=== PATIENT | female | born 2000 | race Caucasian/White ===

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

== ENCOUNTER 2021-02-05 19:31 | Emergency (ER) | payer OTHER ==
[2021-02-05 19:54] VITALS: RESP 18
--- NOTE | 2021-02-05 21:33 | XR ---
EXAMINATION TYPE: XR chest 2V DATE OF EXAM: 02/05/2021 COMPARISON: NONE HISTORY: Cough and congestion TECHNIQUE: Frontal and lateral views of the chest are obtained. FINDINGS: There is no focal air space opacity, pleural effusion, or pneumothorax seen. The cardiac silhouette size is within normal limits. The osseous structures are intact. IMPRESSION: No acute cardiopulmonary process.
--- NOTE | 2021-02-05 22:02 | ED ---
General Adult HPI - General Chief complaint: Upper Respiratory Infection Stated complaint: Congestion,Sore Throat Time Seen by Provider: 02/05/21 19:53 Source: patient, RN notes reviewed Mode of arrival: ambulatory - History of Present Illness Initial comments: Patient is a 20-year-old female that presents to emergency room with her daughter stating that she's been sneezing coughing more. She notes that she does have a little bit of a sore throat. She notes that she also had seasonal ALLERGIES. She denies any fevers fatigue. She was a well-appearing 20-year-old female apparent distress or pain. She denied any other issues at this time. - Related Data Home Medications Medication Instructions Recorded Confirmed Sertraline HCl [Zoloft] 50 mg PO HS 05/23/20 12/22/20 Previous Rx's Medication Instructions Recorded Ibuprofen [Motrin] 600 mg PO Q6H #30 tab 12/25/20 oxyCODONE HCL [OxyIR] 5 mg PO Q4HR PRN #18 tab 12/25/20 Allergies Allergy/AdvReac Type Severity Reaction Status Date / Time cinnamon Allergy Swelling Verified 02/05/21 19:54 milk Allergy CONSTIPATIO Verified 02/05/21 19:54 N Review of Systems ROS Statement: Those systems with pertinent positive or pertinent negative responses have been documented in the HPI. ROS Other: All systems not noted in ROS Statement are negative. 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 bipolor, depression. illicit drug use General Exam General appearance: alert, in no apparent distress Head exam: Present: atraumatic, normocephalic, normal inspection Eye exam: Present: normal appearance, PERRL, EOMI. Absent: scleral icterus, conjunctival injection, periorbital swelling ENT exam: Present: normal exam, mucous membranes moist Neck exam: Present: normal inspection Respiratory exam: Present: normal lung sounds bilaterally. Absent: respiratory distress, wheezes, rales, rhonchi, stridor Cardiovascular Exam: Present: regular rate, normal rhythm, normal heart sounds. Absent: systolic murmur, diastolic murmur, rubs, gallop, clicks GI/Abdominal exam: Present: soft, normal bowel sounds. Absent: distended, tenderness, guarding, rebound, rigid Extremities exam: Present: normal inspection, full ROM, normal capillary refill. Absent: tenderness, pedal edema, joint swelling, calf tenderness Neurological exam: Present: alert, oriented X3 Psychiatric exam: Present: normal affect, normal mood Skin exam: Present: warm, dry, intact, normal color. Absent: rash Course Vital Signs 02/05/21 19:51 Temperature 99.2 F Pulse Rate 87 Respiratory 18 Rate Blood Pressure 125/67 O2 Sat by Pulse 98 Oximetry Medical Decision Making - Medical Decision Making 20-year-old female with a cough and sneezing, also has seasonal ALLERGIES. Chest x-ray, Covid test. Covid test negative. Chest x-ray shows no acute cardiopulmonary process. Case discussed with Dr. Harris, patient discharge home. - Lab Data Lab Results 02/05/21 Range/Units 20:35 Coronavirus (PCR) Not Detected (Not Detectd) Disposition Clinical Impression: Seasonal allergies Disposition: HOME SELF-CARE Instructions (If sedation given, give patient instructions): Upper Respiratory Infection (ED) Additional Instructions: Chest x-ray: No acute cardiopulmonary process. Is patient prescribed a controlled substance at d/c from ED?: No Referrals: Stanislav Sanders MD [Primary Care Provider] - 1-2 days Time of Disposition: 22:01
[2021-02-05 22:57] VITALS: BP 123/71; PULSE 89; TEMP 98.9
== END 2021-02-05 22:57 | disposition home or self-care (01) ==
LOC: EC 19:31
DX: J30.2 Other seasonal allergic rhinitis (principal); F41.9 Anxiety disorder, unspecified; F31.9 Bipolar disorder, unspecified; F43.12 Post-traumatic stress disorder, chronic; F12.90 Cannabis use, unspecified, uncomplicated; Z91.018 Allergy to other foods; Z91.011 Allergy to milk products; Z87.891 Personal history of nicotine dependence; Z20.822 Contact with and (suspected) exposure to COVID-19
CPT/HCPCS: 71046; 87635; 99283

== ENCOUNTER 2021-02-09 18:40 | Inpatient (IN) | payer MEDICAID, OTHER ==
--- NOTE | 2021-02-09 20:00 | ED ---
General Adult HPI - General Chief complaint: Psychiatric Symptoms Stated complaint: Psych Eval Time Seen by Provider: 02/09/21 19:41 Source: patient Mode of arrival: ambulatory Limitations: no limitations - History of Present Illness Initial comments: Dictation was produced using [employer] dictation software. please excuse any grammatical, word or spelling errors. Chief Complaint: 20-year-old female presents to the emergency department for suicidal ideation History of Present Illness: Patient is a 20-year-old female presents for farida cidal ideation. She has been admitted to inpatient psychiatry for suicidal ideation in the past as a pediatric patient. States that she wants to overdose on pills. She is 1 month . Patient has no medical issues. Denies any pain complaints. No visual auditory hallucinations. The ROS documented in this emergency department record has been reviewed and confirmed by me. Those systems with pertinent positive or negative responses have been documented in the HPI. All other systems are other negative and/or noncontributory. PHYSICAL EXAM: General Impression: Alert and oriented x3, not in acute distress HEENT: Normocephalic atraumatic, extra-ocular movements intact, pupils equal and reactive to light bilaterally, mucous membranes moist. Cardiovascular: Heart regular rate and rhythm Chest: Able to complete full sentences, no retractions, no tachypnea Abdomen: abdomen soft, non-tender, non-distended, no organomegaly Musculoskeletal: Pulses present and equal in all extremities, no peripheral edema Motor: no focal deficits noted Neurological: CN II-XII grossly intact, no focal motor or sensory deficits noted Skin: Intact with no visualized rashes Psych: Normal affect and mood ED course: 20-year-old female presents with suicidal ideation. Patient has plans to overdose on pills. Vital signs upon arrival are within acceptable limits. Physical examination is benign. Medically cleared for EPS evaluation. Chart was reviewed later date. Patient was admitted to inpatient psychiatry. - Related Data Home Medications Medication Instructions Recorded Confirmed Amoxicillin 500 mg PO BID 02/09/21 02/09/21 Fluticasone Nasal [place] [Flonase 1 spray EA NOSTRIL DAILY 02/09/21 02/09/21 Nasal [place]] Medroxyprogesterone Acetate 150 mg IM Q90D 02/09/21 02/09/21 [Depo-Provera] Previous Rx's Medication Instructions Recorded Nicotine 7Mg/24Hr Patch [Habitrol] 1 patch TRANSDERM DAILY 30 Days 02/13/21 patch Sertraline [Zoloft] 75 mg PO DAILY 30 Days tab 02/13/21 Allergies Allergy/AdvReac Type Severity Reaction Status Date / Time cinnamon Allergy Swelling Verified 02/09/21 20:49 milk Allergy CONSTIPATIO Verified 02/09/21 20:49 N Review of Systems ROS Statement: Those systems with pertinent positive or pertinent negative responses have been documented in the HPI. ROS Other: All systems not noted in ROS Statement are negative. 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 bipolor, depression. illicit drug use General Exam Limitations: no limitations Course Vital Signs 02/09/21 02/09/21 02/10/21 19:37 23:00 02:18 Temperature 97.9 F Pulse Rate 66 85 61 Respiratory 18 20 20 Rate Blood Pressure 114/62 109/65 108/64 O2 Sat by Pulse 99 95 98 Oximetry Medical Decision Making - Lab Data Result diagrams: 02/10/21 12:08 02/10/21 12:08 Lab Results 02/10/21 Range/Units 01:14 Coronavirus (PCR) Not Detected (Not Detectd) Disposition Clinical Impression: Suicidal ideation Disposition: ADMITTED IP TO THIS HOSP Condition: Stable
[2021-02-10] MEDS ORDERED: LORazepam 1 MG TAB PO PRN (03:06)
[2021-02-10] MEDS ORDERED: MAGNESIUM HYDROXIDE 2,400 MG/10 ML CUP PO PRN (03:06)
[2021-02-10] MEDS ORDERED: MAG HYDROX/AL HYDROX/SIMETH 30 ML CUP PO PRN (03:06)
[2021-02-10] MEDS ORDERED: ACETAMINOPHEN TAB 325 MG TAB PO PRN (03:06)
[2021-02-10] MEDS ORDERED: LORazepam 2 MG/ML INJ IM PRN (03:09)
--- NOTE | 2021-02-10 03:35 | P.CONS ---
History of Present Illness - Reason for Consult Consult date: 02/10/21 - History of Present Illness Patient is a 20-year-old female with a PMH of fibromyalgia, recent 7 weeks ago, who presented to the emergency room with complaints of depression and suicidal ideation. The patient reports that her recent childbirth has been very stressful and that the child's father is not very helpful, which has been very difficult for her. She notes wanting to overdose on the medications she had received for the postop care. She also reported nasal congestion and productive cough ongoing for the past 4-5 days, for which she was seen by her primary care physician's office and was prescribed amoxicillin and fluticasone nasal spray. The patient reports compliance with the above medications and states that her symptoms have improved over the past few days. Denied any additional fevers. Also denied shortness of breath, nausea, vomiting, diarrhea, abdominal pain. Review of systems: Pertinent positives and negatives as discussed in HPI, a complete review of systems was performed and all other systems are negative. Physical examination: General: non toxic, no distress, appears at stated age, normal weight Derm: no unusual rashes/lesions no unusual ecchymoses, warm, dry Head: atraumatic, normocephalic, symmetric Eyes: EOMI, no lid lag, anicteric sclera, pupils equal round reactive to light ENT: Nose and ears atraumatic, no thrush, no pharyngeal erythema Neck: No thyromegaly, no cervical lymphadenopathy, trachea midline, supple Mouth: no lip lesion, mucus membranes moist Cardiovascular: S1S2 reg, no murmur, positive posterior tibial pulse bilateral, no edema, capillary refill less than 2 seconds Lungs: CTA bilateral, no rhonchi, no rales , no accessory muscle use Abdominal: soft, nontender to palpation, no guarding, no appreciable organomegaly, normal bowel sounds Ext: no gross muscle atrophy, muscle strength 5 out of 5 in all 4 extremities grossly, no contractures, Neuro: CN II-XI grossly intact, light touch intact all 4 extremities, finger to nose within normal limits, Psych: Alert, oriented, appropriate affect Assessment/plan URI -Continue with amoxicillin to complete course -Continue with fluticasone nasal spray for symptomatic control Depression with suicidal ideation -As per psychiatry Past Medical History Past Medical History: Fibromyalgia Additional Past Medical History / Comment(s): 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 bipolor, depression. illicit drug use Medications and Allergies Home Medications Medication Instructions Recorded Confirmed Type Amoxicillin 500 mg PO BID 02/09/21 02/09/21 History Fluticasone Nasal Brooks [Flonase 1 spray EA NOSTRIL DAILY 02/09/21 02/09/21 History Nasal Brooks] Ibuprofen [Motrin] 600 mg PO Q6H PRN 02/09/21 02/09/21 History Medroxyprogesterone Acetate 150 mg IM Q90D 02/09/21 02/09/21 History [Depo-Provera] Allergies Allergy/AdvReac Type Severity Reaction Status Date / Time cinnamon Allergy Swelling Verified 02/09/21 20:49 milk Allergy CONSTIPATIO Verified 02/09/21 20:49 N Physical Exam Vitals: Vital Signs Temp Pulse Resp BP Pulse Ox 02/10/21 02:18 61 20 108/64 98 02/09/21 23:00 85 20 109/65 95 02/09/21 19:37 97.9 F 66 18 114/62 99 Intake and Output 02/09/21 02/09/21 02/10/21 14:59 22:59 06:59 Other: Weight 52.617 kg
[2021-02-10 03:50] VITALS: RESP 16
[2021-02-10] MEDS: AMOXICILLIN 500 MG CAP PO SCH ×2 (08:40→21:40)
[2021-02-10] MEDS: NICOTINE 7MG/24HR PATCH TRANSDERM SCH (08:40)
[2021-02-10] MEDS: FLUTICASONE 50MCG/SPRAY NASAL 16GM EA NOSTRIL SCH (08:40)
[2021-02-10] MEDS ORDERED: SERTRALINE 50 MG TAB PO STA (12:27)
[2021-02-10 12:35] LABS: Basophils % (A) 1 %; Eosinophils # (A) 0.2 k/uL (0-0.7); Eosinophils % (A) 3 %; HCT 38.2 % (34.0-46.0); HGB 12.2 gm/dL (11.4-16.0); Lymphocytes # (A) 2.1 k/uL (1.0-4.8); Lymphocytes % (A) 39 %; MCH 28.1 pg (25.0-35.0); MCHC 32.1 g/dL (31.0-37.0); MCV 87.6 fL (80.0-100.0); Mean Platelet Volume 7.8; Monocytes # (A) 0.2 k/uL (0-1.0); Monocytes % (A) 4 %; Neutrophils # (A) 2.7 k/uL (1.3-7.7); Neutrophils % (A) 51 %; Platelet Count 313 k/uL (150-450); RBC 4.36 m/uL (3.80-5.40); RDW 14.5 % (11.5-15.5); WBC 5.4 k/uL (4.0-11.0)
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
[2021-02-10 12:57] LABS: ALT 25 U/L (4-34); AST 25 U/L (14-36); African American GFR (CKD) >90 (>60 ml/min/1.73 sqM); Albumin 3.9 g/dL (3.5-5.0); Alkaline Phosphatase 92 U/L (38-126); Anion Gap 8 mmol/L; Blood Urea Nitrogen 10 mg/dL (7-17); Calcium 9.4 mg/dL (8.4-10.2); Carbon Dioxide 22 mmol/L (22-30); Chloride 111 mmol/L (98-107); Glucose 90 mg/dL (74-99); Non-African American GFR(CKD) >90 (>60 ml/min/1.73 sqM); Potassium 4.6 mmol/L (3.5-5.1); Sodium 141 mmol/L (137-145); Total Bilirubin 0.2 mg/dL (0.2-1.3); Total Protein 6.6 g/dL (6.3-8.2)
[2021-02-10 19:26] LABS: Appearance,Urine Clear (Clear); Bilirubin,Urine Negative (Negative); Blood,Urine Negative (Negative); Color,Urine Light Yellow; Glucose,Urine (UA) Negative (Negative); Ketones,Urine Negative (Negative); Leukocyte Esterase,Urine Moderate (Negative); Mucus,Urine Rare /hpf; Nitrite,Urine Negative (Negative); Protein,Urine Negative (Negative); RBC,Urine 1 /hpf (0-5); Specific Gravity,Urine 1.014 (1.001-1.035); Squamous Epithelial Cell,Urine 6 /hpf (0-4); Urobilinogen,Urine <2.0 mg/dL (<2.0); WBC,Urine 2 /hpf (0-5)
[2021-02-11] MEDS: FLUTICASONE 50MCG/SPRAY NASAL 16GM EA NOSTRIL SCH (08:10)
[2021-02-11] MEDS: AMOXICILLIN 500 MG CAP PO SCH ×2 (08:10→20:53)
[2021-02-11] MEDS: NICOTINE 7MG/24HR PATCH TRANSDERM SCH (08:10)
[2021-02-11] MEDS: SERTRALINE 25 MG TAB PO SCH (08:10)
--- NOTE | 2021-02-11 14:27 | PN ---
PROGRESS NOTE DATE OF SERVICE: 02/11/2021 CHIEF COMPLAINT: The patient had depression with suicidal thinking. She had intrusive thoughts of harming her child, who was 7 weeks old. INTERVAL HISTORY: Patient has been doing fairly well. She had a quiet day yesterday. She comes on the unit. She tends to keep to herself. She chose not to attend groups yesterday. She was able to talk about depression issues relating to her . She noted that she did not have depression during , though that depression seemed to start up some weeks after giving , as there were some struggles for her baby. She said the baby had troubles with breast-feeding intermittently, which was a problem. Baby also would get quite distressed when she was not able to feed appropriately. The patient said that the stress of caring for her baby just seemed to get overwhelming to her. She notes that she has had depression in the past and says that the medications had been helpful before. She slept fair last night. She said she has been trying to get extra sleep here on the unit because she had not been getting much sleep at home. Today she has been up. She did attend groups today so far. She notes that her mood is better, she has a better outlook. She still has some worries about her baby as appropriate, though feels she is managing that fairly well. She has made telephone contacts to various family members, checking up on things and making sure her baby is okay. Her sister has been caring for her child along with the father, with whom she lives. She tolerates her psychotropic medications, including the increase in Zoloft. MENTAL STATUS EXAM: Patient sat with a little restlessness. She gave fairly good eye contact. She answered questions with brief responses. Her thoughts were clear. She tended to speak in a soft, at times airy, voice. Her affect was a little constricted. Her mood was reserved though not clearly down or depressed. She did not appear to be significantly distressed, though she did have a somewhat worried manner. Her thoughts were clear with no indication of thought disorder. She voiced no thoughts of harm. Cognition was clear. ASSESSMENT: I will continue the current diagnosis and treatment plan. I will continue her on Zoloft 75 mg a day. I reviewed medication issues with the patient, including indications and potential side effects. I discussed the general protocol for a trial of an antidepressant. We discussed Covid vaccination issues, given that the CDC now has a recommendation for women and women breast-feeding to receive the vaccination. There is also indications that through breast milk the infant can also receive protection relating to Covid. We will focus on stabilization and discharge planning. The patient is doing fairly well. She does start class on Saturday and was hopeful to possibly have her laptop in on the unit to do class work. I discussed that that likely would not be permitted. On the other hand, the patient is showing progress and may be able to be discharged early in the week. MMODL / IJN: [id number] / JEMAL
[2021-02-11 17:03] LABS: Urine Alcohol Negative (Negative); Urine Barbiturate Negative (Negative); Urine Cocaine Negative (Negative); Urine Methadone Negative (Negative); Urine Opiates Negative (Negative); Urine Phencyclidine Negative (Negative)
[2021-02-12] MEDS: SERTRALINE 25 MG TAB PO SCH (07:51)
[2021-02-12] MEDS: FLUTICASONE 50MCG/SPRAY NASAL 16GM EA NOSTRIL SCH (07:51)
[2021-02-12] MEDS: AMOXICILLIN 500 MG CAP PO SCH ×2 (07:51→20:47)
[2021-02-12] MEDS: NICOTINE 7MG/24HR PATCH TRANSDERM SCH (07:52)
--- NOTE | 2021-02-12 13:39 | PN ---
PROGRESS NOTE DATE OF SERVICE: 02/12/2021 CHIEF COMPLAINT: The patient had depression with suicidal thinking. She had intrusive thoughts of harming her child who was 7 weeks old. INTERVAL HISTORY: Patient has been doing fairly well. She had a quiet day yesterday. She comes out on the unit. She will interact with others. She attended groups yesterday and seemed to engage appropriately in groups. She was appropriate in her interactions with staff and peers. She said she slept fairly well last night. Today she has been up. She notes a better outlook. She acknowledged that yesterday she did have some issues with feeling anxious about how her was doing, though she said today she feels more calm about it. She keeps in touch with family. She asked appropriate questions about Zoloft and breast-feeding. She tolerates psychotropic medications. MENTAL STATUS: Patient sat without restlessness. She had good eye contact. She answered questions appropriately. Her thoughts were clear and coherent. She was interactive. Her affect was in a reasonable range. Her mood was reserved, though not down or depressed. She did not appear to be distressed. There was no indication of thought disorder. She denied thoughts of harm to herself, her or anyone else. Cognition was clear. ASSESSMENT: I will continue the current diagnosis and treatment plan. The patient will continue Zoloft 75 mg a day. I reviewed current guidelines relating to Zoloft and breast- feeding. The indication appears to be that a minimal amount of sertraline goes through breast milk to the and that there are no issues with exposure to the infant. I again strongly encouraged the patient to review CDC guidelines in regard to vaccination and breast-feeding. I would anticipate the patient being discharged early in the week. She is hopeful to be discharged so she can begin school on Saturday. We will focus on stabilization and discharge planning. MMODL / IJN: [id number] /
[2021-02-13 06:59] VITALS: BP 106/55; PULSE 80; TEMP 97.7
[2021-02-13] MEDS: NICOTINE 7MG/24HR PATCH TRANSDERM SCH (08:17)
[2021-02-13] MEDS: SERTRALINE 25 MG TAB PO SCH (08:18)
[2021-02-13] MEDS: FLUTICASONE 50MCG/SPRAY NASAL 16GM EA NOSTRIL SCH (08:18)
[2021-02-13] MEDS: AMOXICILLIN 500 MG CAP PO SCH (08:18)
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
== END 2021-02-13 12:58 | disposition home or self-care (01) | DRG 881 ==
LOC: EC 18:40 → 3MHU 02-10 02:01
PROVIDERS: ADMIT Psychiatry & Neurology Psychiatry; ATTEND Psychiatry & Neurology Psychiatry
DX: F53.0 Postpartum depression (principal); R45.851 Suicidal ideations; F17.200 Nicotine dependence, unspecified, uncomplicated; F31.9 Bipolar disorder, unspecified; F43.10 Post-traumatic stress disorder, unspecified; J06.9 Acute upper respiratory infection, unspecified; M79.7 Fibromyalgia; O99.345 Other mental disorders complicating the puerperium; Z79.899 Other long term (current) drug therapy; Z81.8 Family history of other mental and behavioral disorders; Z91.5 Personal history of self-harm; F12.10 Cannabis abuse, uncomplicated
CPT/HCPCS: 80053; 80306; 81001; 81025; 82075; 83036; 84443; 85025; 87635; 99285

== ENCOUNTER → 2021-04-07 | Outpatient (CLI) | payer OTHER | END | disposition home or self-care (01) | LOC: LABWHC1 15:37 | PROVIDERS: ATTEND Obstetrics & Gynecology | DX: N91.2 Amenorrhea, unspecified (principal) | CPT/HCPCS: 36415; 84702 ==

== ENCOUNTER → 2021-08-03 | Outpatient (CLI) | payer OTHER | END | disposition home or self-care (01) | LOC: LABWHC1 15:45 | PROVIDERS: ATTEND Obstetrics & Gynecology | DX: N94.89 Other specified conditions associated with female genital organs and menstrual cycle (principal); R10.2 Pelvic and perineal pain | CPT/HCPCS: 36415; 84702 ==

== ENCOUNTER 2021-09-29 20:34 | Emergency (ER) | payer OTHER ==
[2021-09-29 20:41] VITALS: RESP 18
--- NOTE | 2021-09-29 21:00 | ED ---
General Adult HPI - General Chief complaint: Syncope Stated complaint: Syncope, head injury Time Seen by Provider: 09/29/21 20:45 Source: patient Mode of arrival: ambulatory Limitations: no limitations - History of Present Illness Initial comments: Patient is a 20-year-old female presenting with chief complaint of syncope. Patient states that prior to presentation she was at a restaurant, she took a sip of her drink and it "went down the wrong pipe" causing her to profusely cough. When she stopped coughing she felt the sharp chest pain and the next thing she remembers is waking up on the floor. Her partner with her at times states she was unconscious for 45 seconds-1 minute. When asked if she hit her head, her partner with her at bedside states that she hit her head on the table but did not fall to the ground. Patient states that she has lost consciousness in the past before, this occurred during her . Patient admits to mild abdominal cramping this week. She currently denies any chest pain, shortness of breath, fever, chills, vision or hearing changes, neck stiffness, abdominal pain, nausea, vomiting, cough, hemoptysis, dizziness. - Related Data Home Medications Medication Instructions Recorded Confirmed Sertraline [Zoloft] 75 mg PO DAILY 09/29/21 09/29/21 Allergies Allergy/AdvReac Type Severity Reaction Status Date / Time cinnamon Allergy Swelling Verified 09/29/21 21:31 milk Allergy CONSTIPATIO Verified 09/29/21 21:31 N Review of Systems ROS Statement: Those systems with pertinent positive or pertinent negative responses have been documented in the HPI. ROS Other: All systems not noted in ROS Statement are negative. 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 bipolor, depression. illicit drug use General Exam Limitations: no limitations General appearance: alert, in no apparent distress Head exam: Present: atraumatic, normocephalic, normal inspection Eye exam: Present: normal appearance, PERRL, EOMI. Absent: scleral icterus, conjunctival injection, periorbital swelling ENT exam: Present: normal exam, mucous membranes moist Neck exam: Present: normal inspection, full ROM. Absent: tenderness, meningismus, lymphadenopathy Respiratory exam: Present: normal lung sounds bilaterally. Absent: respiratory distress, wheezes, rales, rhonchi, stridor Cardiovascular Exam: Present: regular rate, normal rhythm, normal heart sounds. Absent: systolic murmur, diastolic murmur, rubs, gallop, clicks Neurological exam: Present: alert, oriented X3, CN II-XII intact Expanded Patient oriented to: Present: person, place, time Speech: Present: fluid speech Cranial nerves: EOM's Intact: Normal, Facial Sensation: Normal Ataxia: Absent: yes Eye Response: (4) open spontaneously Motor Response: (6) obeys commands Verbal Response: (5) oriented [place] Total: 15 Psychiatric exam: Present: normal affect, normal mood Skin exam: Present: warm, dry, intact, normal color. Absent: rash Course Vital Signs 09/29/21 09/29/21 20:37 23:26 Temperature 98.1 F 98.2 F Pulse Rate 62 73 Respiratory 18 18 Rate Blood Pressure 140/79 98/59 O2 Sat by Pulse 100 97 Oximetry Medical Decision Making - Medical Decision Making Patient is a 20-year-old female presenting with chief complaint of syncope. Patient states that she lost consciousness after a coughing fit. Her partner at bedside denies any head injury. Exam is benign, no focal neurological deficits. EKG is remarkable for prolonged FL interval, no previous study to c ompare to. Lab work is unremarkable. Chest x-ray shows no acute cardiopulmonary process. I educated the patient on the findings and advised outpatient cardiology follow-up. Follow-up with PCP and cardiology this week. Report back to ER with any worsening symptoms. I educated the patient on return parameters answered all questions. Patient conveyed verbal understanding and agrees with plan. I discussed this case with my attending Dr. Genao. - Lab Data Result diagrams: 09/29/21 21:14 09/29/21 21:14 Lab Results 09/29/21 09/29/2122 Range/Units 21:14 21:14 21:14 WBC 9.0 (4.0-11.0) k/uL RBC 4.47 (3.80-5.40) m/uL Hgb 13.1 (11.4-16.0) gm/dL Hct 40.5 (34.0-46.0) % MCV 90.5 (80.0-100.0) fL MCH 29.3 (25.0-35.0) pg MCHC 32.4 (31.0-37.0) g/dL RDW 12.9 (11.5-15.5) % Plt Count 240 (150-450) k/uL MPV 8.4 Neutrophils % 65 % Lymphocytes % 27 % Monocytes % 5 % Eosinophils % 1 % Basophils % 1 % Neutrophils # 5.9 (1.3-7.7) k/uL Lymphocytes # 2.4 (1.0-4.8) k/uL Monocytes # 0.4 (0-1.0) k/uL Eosinophils # 0.1 (0-0.7) k/uL Basophils # 0.1 (0-0.2) k/uL PT 11.5 (9.0-12.0) sec INR 1.1 (<1.2) APTT 24.7 (22.0-30.0) sec Sodium 138 (137-145) mmol/L Potassium 4.1 (3.5-5.1) mmol/L Chloride 106 (98-107) mmol/L Carbon Dioxide 23 (22-30) mmol/L Anion Gap 9 mmol/L BUN 13 (7-17) mg/dL Creatinine 0.65 (0.52-1.04) mg/dL Est GFR (CKD-EPI)AfAm >90 (>60 ml/min/1.73 sqM) Est GFR (CKD-EPI)NonAf >90 (>60 ml/min/1.73 sqM) Glucose 93 (74-99) mg/dL Calcium 9.1 (8.4-10.2) mg/dL Magnesium 2.0 (1.6-2.3) mg/dL Total Bilirubin 0.5 (0.2-1.3) mg/dL AST 20 (14-36) U/L ALT 13 (4-34) U/L Alkaline Phosphatase 80 (38-126) U/L Troponin I (0.000-0.034) ng/mL Total Protein 7.1 (6.3-8.2) g/dL Albumin 4.3 (3.5-5.0) g/dL Urine Color Urine Appearance (Clear) Urine pH (5.0-8.0) Ur Specific [place] (1.001-1.035) Urine Protein (Negative) Urine Glucose (UA) (Negative) Urine Ketones (Negative) Urine Blood (Negative) Urine Nitrite (Negative) Urine Bilirubin (Negative) Urine Urobilinogen (<2.0) mg/dL Ur Leukocyte Esterase (Negative) Urine HCG, Qual (Not Detectd) Urine Opiates Screen (NotDetected) Ur Oxycodone Screen (NotDetected) Urine Methadone Screen (NotDetected) Ur Propoxyphene Screen (NotDetected) Ur Barbiturates Screen (NotDetected) U Tricyclic Antidepress (NotDetected) Ur Phencyclidine Scrn (NotDetected) Ur Amphetamines Screen (NotDetected) U Methamphetamines Scrn (NotDetected) U Benzodiazepines Scrn (NotDetected) Urine Cocaine Screen (NotDetected) U Marijuana (THC) Screen (NotDetected) 09/29/21 09/29/21 09/29/21 Range/Units 21:14 21:14 21:14 WBC (4.0-11.0) k/uL RBC (3.80-5.40) m/uL Hgb (11.4-16.0) gm/dL Hct (34.0-46.0) % MCV (80.0-100.0) fL MCH (25.0-35.0) pg MCHC (31.0-37.0) g/dL RDW (11.5-15.5) % Plt Count (150-450) k/uL MPV Neutrophils % % Lymphocytes % % Monocytes % % Eosinophils % % Basophils % % Neutrophils # (1.3-7.7) k/uL Lymphocytes # (1.0-4.8) k/uL Monocytes # (0-1.0) k/uL Eosinophils # (0-0.7) k/uL Basophils # (0-0.2) k/uL PT (9.0-12.0) sec INR (<1.2) APTT (22.0-30.0) sec Sodium (137-145) mmol/L Potassium (3.5-5.1) mmol/L Chloride (98-107) mmol/L Carbon Dioxide (22-30) mmol/L Anion Gap mmol/L BUN (7-17) mg/dL Creatinine (0.52-1.04) mg/dL Est GFR (CKD-EPI)AfAm (>60 ml/min/1.73 sqM) Est GFR (CKD-EPI)NonAf (>60 ml/min/1.73 sqM) Glucose (74-99) mg/dL Calcium (8.4-10.2) mg/dL Magnesium (1.6-2.3) mg/dL Total Bilirubin (0.2-1.3) mg/dL AST (14-36) U/L ALT (4-34) U/L Alkaline Phosphatase (38-126) U/L Troponin I <0.012 (0.000-0.034) ng/mL Total Protein (6.3-8.2) g/dL Albumin (3.5-5.0) g/dL Urine Color Yellow Urine Appearance Clear (Clear) Urine pH 5.5 (5.0-8.0) Ur Specific [place] 1.022 (1.001-1.035) Urine Protein Negative (Negative) Urine Glucose (UA) Negative (Negative) Urine Ketones Negative (Negative) Urine Blood Negative (Negative) Urine Nitrite Negative (Negative) Urine Bilirubin Negative (Negative) Urine Urobilinogen <2.0 (<2.0) mg/dL Ur Leukocyte Esterase Negative (Negative) Urine HCG, Qual Not Detected (Not Detectd) Urine Opiates Screen (NotDetected) Ur Oxycodone Screen (NotDetected) Urine Methadone Screen (NotDetected) Ur Propoxyphene Screen (NotDetected) Ur Barbiturates Screen (NotDetected) U Tricyclic Antidepress (NotDetected) Ur Phencyclidine Scrn (NotDetected) Ur Amphetamines Screen (NotDetected) U Methamphetamines Scrn (NotDetected) U Benzodiazepines Scrn (NotDetected) Urine Cocaine Screen (NotDetected) U Marijuana (THC) Screen (NotDetected) 09/29/21 Range/Units 21:35 WBC (4.0-11.0) k/uL RBC (3.80-5.40) m/uL Hgb (11.4-16.0) gm/dL Hct (34.0-46.0) % MCV (80.0-100.0) fL MCH (25.0-35.0) pg MCHC (31.0-37.0) g/dL RDW (11.5-15.5) % Plt Count (150-450) k/uL MPV Neutrophils % % Lymphocytes % % Monocytes % % Eosinophils % % Basophils % % Neutrophils # (1.3-7.7) k/uL Lymphocytes # (1.0-4.8) k/uL Monocytes # (0-1.0) k/uL Eosinophils # (0-0.7) k/uL Basophils # (0-0.2) k/uL PT (9.0-12.0) sec INR (<1.2) APTT (22.0-30.0) sec Sodium (137-145) mmol/L Potassium (3.5-5.1) mmol/L Chloride (98-107) mmol/L Carbon Dioxide (22-30) mmol/L Anion Gap mmol/L BUN (7-17) mg/dL Creatinine (0.52-1.04) mg/dL Est GFR (CKD-EPI)AfAm (>60 ml/min/1.73 sqM) Est GFR (CKD-EPI)NonAf (>60 ml/min/1.73 sqM) Glucose (74-99) mg/dL Calcium (8.4-10.2) mg/dL Magnesium (1.6-2.3) mg/dL Total Bilirubin (0.2-1.3) mg/dL AST (14-36) U/L ALT (4-34) U/L Alkaline Phosphatase (38-126) U/L Troponin I (0.000-0.034) ng/mL Total Protein (6.3-8.2) g/dL Albumin (3.5-5.0) g/dL Urine Color Urine Appearance (Clear) Urine pH (5.0-8.0) Ur Specific [place] (1.001-1.035) Urine Protein (Negative) Urine Glucose (UA) (Negative) Urine Ketones (Negative) Urine Blood (Negative) Urine Nitrite (Negative) Urine Bilirubin (Negative) Urine Urobilinogen (<2.0) mg/dL Ur Leukocyte Esterase (Negative) Urine HCG, Qual (Not Detectd) Urine Opiates Screen Not Detected (NotDetected) Ur Oxycodone Screen Not Detected (NotDetected) Urine Methadone Screen Not Detected (NotDetected) Ur Propoxyphene Screen Not Detected (NotDetected) Ur Barbiturates Screen Not Detected (NotDetected) U Tricyclic Antidepress Not Detected (NotDetected) Ur Phencyclidine Scrn Not Detected (NotDetected) Ur Amphetamines Screen Not Detected (NotDetected) U Methamphetamines Scrn Not Detected (NotDetected) U Benzodiazepines Scrn Not Detected (NotDetected) Urine Cocaine Screen Not Detected (NotDetected) U Marijuana (THC) Screen Detected H (NotDetected) Disposition Clinical Impression: Vasovagal syncope Disposition: HOME SELF-CARE Condition: Good Instructions (If sedation given, give patient instructions): Syncope (DC) Additional Instructions: Follow-up with PCP this week. Follow up with cardiology this week. Report back to ER if any worsening symptoms. Is patient prescribed a controlled substance at d/c from ED?: No Referrals: Stanislav Sanders MD [Primary Care Provider] - 1-2 days Bob Reyes DO [STAFF PHYSICIAN] - 1-2 days Time of Disposition: 23:17
[2021-09-29 21:31] LABS: Basophils # (A) 0.1 k/uL (0-0.2); Basophils % (A) 1 %; Eosinophils # (A) 0.1 k/uL (0-0.7); Eosinophils % (A) 1 %; HCT 40.5 % (34.0-46.0); HGB 13.1 gm/dL (11.4-16.0); Lymphocytes # (A) 2.4 k/uL (1.0-4.8); Lymphocytes % (A) 27 %; MCH 29.3 pg (25.0-35.0); MCHC 32.4 g/dL (31.0-37.0); MCV 90.5 fL (80.0-100.0); Mean Platelet Volume 8.4; Monocytes # (A) 0.4 k/uL (0-1.0); Monocytes % (A) 5 %; Neutrophils # (A) 5.9 k/uL (1.3-7.7); Neutrophils % (A) 65 %; Platelet Count 240 k/uL (150-450); RBC 4.47 m/uL (3.80-5.40); RDW 12.9 % (11.5-15.5)
[2021-09-29 21:36] LABS: Appearance,Urine Clear (Clear); Bilirubin,Urine Negative (Negative); Blood,Urine Negative (Negative); Color,Urine Yellow; Glucose,Urine (UA) Negative (Negative); Ketones,Urine Negative (Negative); Leukocyte Esterase,Urine Negative (Negative); Nitrite,Urine Negative (Negative); PH, Urine 5.5 (5.0-8.0); Protein,Urine Negative (Negative); Specific Gravity,Urine 1.022 (1.001-1.035); Urobilinogen,Urine <2.0 mg/dL (<2.0)
[2021-09-29 21:40] LABS: INR 1.1 (<1.2); Partial Thromboplastin Time 24.7 sec (22.0-30.0); Prothrombin Time 11.5 sec (9.0-12.0)
--- NOTE | 2021-09-29 21:57 | XR ---
EXAMINATION TYPE: XR chest 2V DATE OF EXAM: 09/29/2021 COMPARISON: 02/05/2021 HISTORY: Syncope TECHNIQUE: 2 views FINDINGS: Heart and mediastinum are normal. Lungs are clear. Diaphragm is normal. Bony thorax appears normal. IMPRESSION: Normal chest. No change.
[2021-09-29 22:04] LABS: Amphetamine Screen,Urine Not Detected (NotDetected); Barbiturate Screen,Urine Not Detected (NotDetected); Benzodiazepines Screen,Urine Not Detected (NotDetected); Cocaine Screen,Urine Not Detected (NotDetected); Methadone Screen, Urine Not Detected (NotDetected); Opiate Screen,Urine Not Detected (NotDetected); Oxycodone Screen, Urine Not Detected (NotDetected); Phencyclidine Screen,Urine Not Detected (NotDetected); Tricyclic Antidepressant,Urine Not Detected (NotDetected); Urn Cannabinoid Scrn Detected (NotDetected)
[2021-09-29 23:00] LABS: ALT 13 U/L (4-34); AST 20 U/L (14-36); African American GFR (CKD) >90 (>60 ml/min/1.73 sqM); Albumin 4.3 g/dL (3.5-5.0); Alkaline Phosphatase 80 U/L (38-126); Anion Gap 9 mmol/L; Blood Urea Nitrogen 13 mg/dL (7-17); Calcium 9.1 mg/dL (8.4-10.2); Carbon Dioxide 23 mmol/L (22-30); Chloride 106 mmol/L (98-107); Glucose 93 mg/dL (74-99); Non-African American GFR(CKD) >90 (>60 ml/min/1.73 sqM); Potassium 4.1 mmol/L (3.5-5.1); Sodium 138 mmol/L (137-145); Total Bilirubin 0.5 mg/dL (0.2-1.3); Total Protein 7.1 g/dL (6.3-8.2)
[2021-09-29 23:31] VITALS: BP 98/59; PULSE 73; TEMP 98.2
== END 2021-09-29 23:31 | disposition home or self-care (01) ==
LOC: EC 20:34
DX: R55 Syncope and collapse (principal); M79.7 Fibromyalgia; F41.9 Anxiety disorder, unspecified; F31.9 Bipolar disorder, unspecified; F43.10 Post-traumatic stress disorder, unspecified; F12.90 Cannabis use, unspecified, uncomplicated; Z87.891 Personal history of nicotine dependence
CPT/HCPCS: 36415; 71046; 80053; 80306; 81003; 81025; 83735; 84484; 85025; 85610; 85730; 93005; 99285

== ENCOUNTER 2022-03-10 09:49 | Emergency (ER) | payer OTHER ==
[2022-03-10 10:43] LABS: Basophils % (A) 1 %; Eosinophils # (A) 0.1 k/uL (0-0.7); Eosinophils % (A) 2 %; HCT 42.4 % (34.0-46.0); HGB 13.6 gm/dL (11.4-16.0); Lymphocytes # (A) 1.5 k/uL (1.0-4.8); Lymphocytes % (A) 35 %; MCH 29.2 pg (25.0-35.0); MCHC 32.1 g/dL (31.0-37.0); MCV 90.8 fL (80.0-100.0); Mean Platelet Volume 8.2; Monocytes # (A) 0.2 k/uL (0-1.0); Monocytes % (A) 4 %; Neutrophils # (A) 2.4 k/uL (1.3-7.7); Neutrophils % (A) 56 %; Platelet Count 229 k/uL (150-450); RBC 4.67 m/uL (3.80-5.40); RDW 12.7 % (11.5-15.5); WBC 4.3 k/uL (4.0-11.0)
[2022-03-10 10:50] LABS: Appearance,Urine Clear (Clear); Bilirubin,Urine Negative (Negative); Blood,Urine Moderate (Negative); Color,Urine Light Yellow; Glucose,Urine (UA) Negative (Negative); Ketones,Urine Negative (Negative); Leukocyte Esterase,Urine Small (Negative); Nitrite,Urine Negative (Negative); PH, Urine 5.5 (5.0-8.0); Protein,Urine Negative (Negative); RBC,Urine 9 /hpf (0-5); Specific Gravity,Urine 1.012 (1.001-1.035); Squamous Epithelial Cell,Urine 4 /hpf (0-4); Urobilinogen,Urine <2.0 mg/dL (<2.0); WBC,Urine 1 /hpf (0-5)
--- NOTE | 2022-03-10 10:51 | ED ---
Female Urogenital HPI - General Chief complaint: Vaginal Bleeding Stated complaint: Heavy vaginal bleeding and cramping Time Seen by Provider: 03/10/22 09:52 Source: patient, RN notes reviewed Mode of arrival: ambulatory Limitations: no limitations - History of Present Illness Initial comments: This is a 21-year-old female who presents to the emergency department for vaginal bleeding. Patient states that she was supposed to start her period on 01/24. Today, she started to have heavy bleeding and states that she is going through 2 pads an hour. She also started to feel lightheaded and dizzy and is worried about how much blood she may be losing. She has minor cramping as well. She called her [employer], who advised she come to the emergency department for evaluation. Denies any nausea or vomiting. Denies any fevers, chills, sore throat, cough, dyspnea, chest pain, palpitations, nausea, vomiting, diarrhea, back pain, or headaches. MD Complaint: vaginal bleeding, pelvic pain - Related Data Home Medications Medication Instructions Recorded Confirmed Sertraline [Zoloft] 75 mg PO DAILY 09/29/21 09/29/21 Previous Rx's Medication Instructions Recorded Ketorolac [Toradol] 10 mg PO Q6HR PRN #12 tab 03/10/22 Medroxyprogesterone Acetate 20 mg PO Q8H 7 Days #42 tablet 03/10/22 Allergies Allergy/AdvReac Type Severity Reaction Status Date / Time cinnamon Allergy Swelling Verified 03/10/22 09:59 milk Allergy CONSTIPATIO Verified 03/10/22 09:59 N Review of Systems ROS Statement: Those systems with pertinent positive or pertinent negative responses have been documented in the HPI. ROS Other: All systems not noted in ROS Statement are negative. 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 bipolor, depression. illicit drug use General Exam Limitations: no limitations General appearance: alert, in no apparent distress Respiratory exam: Present: normal lung sounds bilaterally. Absent: respiratory distress, wheezes, rales, rhonchi, stridor Cardiovascular Exam: Present: regular rate, normal rhythm, normal heart sounds. Absent: systolic murmur, diastolic murmur, rubs, gallop, clicks GI/Abdominal exam: Present: soft, normal bowel sounds. Absent: distended, tenderness, guarding, rebound, rigid Neurological exam: Present: alert, oriented X3, CN II-XII intact Psychiatric exam: Present: normal affect, normal mood Skin exam: Present: warm, dry, intact, normal color. Absent: rash Course Vital Signs 03/10/22 03/10/22 09:57 12:30 Temperature 98.1 F 98.6 F Pulse Rate 86 78 Respiratory 16 18 Rate Blood Pressure 110/69 110/68 O2 Sat by Pulse 99 98 Oximetry Medical Decision Making - Medical Decision Making This is a 21-year-old female who presents to the emergency department for vaginal bleeding and cramping. Lab work was nonactionable. Urinalysis reveals no signs of an infection and the patient is not . Ultrasound obtained revealing no acute irregularities to account for the patient's symptoms. Prescription for Toradol and 7 day course of medroxyprogesterone provided per the instructions of the [employer] to abort heavy symptomatic menstrual bleeding. Patient advised to discontinue the medroxyprogesterone if it causes cramping or pain otherwise. Instructed her to contact her [employer] for a follow-up appointment to discuss ongoing symptoms. Return precautions reviewed in depth, the patient is instructed to return to the emergency department with any new, worsening, or concerning symptoms. Patient verbalized understanding. This case was discussed in detail with the attending ED physician. Presentation, findings, and treatment plan discussed in detail as well. - Lab Data Result diagrams: 03/10/22 10:27 03/10/22 10: Lab Results 03/10/22 03/10/22 03/10/22 Range/Units 10:27 10:27 10:27 WBC 4.3 (4.0-11.0) k/uL RBC 4.67 (3.80-5.40) m/uL Hgb 13.6 (11.4-16.0) gm/dL Hct 42.4 (34.0-46.0) % MCV 90.8 (80.0-100.0) fL MCH 29.2 (25.0-35.0) pg MCHC 32.1 (31.0-37.0) g/dL RDW 12.7 (11.5-15.5) % Plt Count 229 (150-450) k/uL MPV 8.2 Neutrophils % 56 % Lymphocytes % 35 % Monocytes % 4 % Eosinophils % 2 % Basophils % 1 % Neutrophils # 2.4 (1.3-7.7) k/uL Lymphocytes # 1.5 (1.0-4.8) k/uL Monocytes # 0.2 (0-1.0) k/uL Eosinophils # 0.1 (0-0.7) k/uL Basophils # 0.0 (0-0.2) k/uL PT 11.5 (9.0-12.0) sec INR 1.1 (<1.2) APTT 26.8 (22.0-30.0) sec Sodium (137-145) mmol/L Potassium (3.5-5.1) mmol/L Chloride (98-107) mmol/L Carbon Dioxide (22-30) mmol/L Anion Gap mmol/L BUN (7-17) mg/dL Creatinine (0.52-1.04) mg/dL Est GFR (CKD-EPI)AfAm (>60 ml/min/1.73 sqM) Est GFR (CKD-EPI)NonAf (>60 ml/min/1.73 sqM) Glucose (74-99) mg/dL Calcium (8.4-10.2) mg/dL Total Bilirubin (0.2-1.3) mg/dL AST (14-36) U/L ALT (4-34) U/L Alkaline Phosphatase (38-126) U/L Total Protein (6.3-8.2) g/dL Albumin (3.5-5.0) g/dL Urine Color Light Yellow Urine Appearance Clear (Clear) Urine pH 5.5 (5.0-8.0) Ur Specific [place] 1.012 (1.001-1.035) Urine Protein Negative (Negative) Urine Glucose (UA) Negative (Negative) Urine Ketones Negative (Negative) Urine Blood Moderate H (Negative) Urine Nitrite Negative (Negative) Urine Bilirubin Negative (Negative) Urine Urobilinogen <2.0 (<2.0) mg/dL Ur Leukocyte Esterase Small H (Negative) Urine RBC 9 H (0-5) /hpf Urine WBC 1 (0-5) /hpf Ur Squamous Epith Cells 4 (0-4) /hpf Urine HCG, Qual (Not Detectd) 03/10/22 03/10/22 Range/Units 10:27 10:27 WBC (4.0-11.0) k/uL RBC (3.80-5.40) m/uL Hgb (11.4-16.0) gm/dL Hct (34.0-46.0) % MCV (80.0-100.0) fL MCH (25.0-35.0) pg MCHC (31.0-37.0) g/dL RDW (11.5-15.5) % Plt Count (150-450) k/uL MPV Neutrophils % % Lymphocytes % % Monocytes % % Eosinophils % % Basophils % % Neutrophils # (1.3-7.7) k/uL Lymphocytes # (1.0-4.8) k/uL Monocytes # (0-1.0) k/uL Eosinophils # (0-0.7) k/uL Basophils # (0-0.2) k/uL PT (9.0-12.0) sec INR (<1.2) APTT (22.0-30.0) sec Sodium 138 (137-145) mmol/L Potassium 4.4 (3.5-5.1) mmol/L Chloride 106 (98-107) mmol/L Carbon Dioxide 21 L (22-30) mmol/L Anion Gap 11 mmol/L BUN 11 (7-17) mg/dL Creatinine 0.62 (0.52-1.04) mg/dL Est GFR (CKD-EPI)AfAm >90 (>60 ml/min/1.73 sqM) Est GFR (CKD-EPI)NonAf >90 (>60 ml/min/1.73 sqM) Glucose 106 H (74-99) mg/dL Calcium 8.8 (8.4-10.2) mg/dL Total Bilirubin 0.7 (0.2-1.3) mg/dL AST 20 (14-36) U/L ALT 16 (4-34) U/L Alkaline Phosphatase 67 (38-126) U/L Total Protein 7.2 (6.3-8.2) g/dL Albumin 4.6 (3.5-5.0) g/dL Urine Color Urine Appearance (Clear) Urine pH (5.0-8.0) Ur Specific [place] (1.001-1.035) Urine Protein (Negative) Urine Glucose (UA) (Negative) Urine Ketones (Negative) Urine Blood (Negative) Urine Nitrite (Negative) Urine Bilirubin (Negative) Urine Urobilinogen (<2.0) mg/dL Ur Leukocyte Esterase (Negative) Urine RBC (0-5) /hpf Urine WBC (0-5) /hpf Ur Squamous Epith Cells (0-4) /hpf Urine HCG, Qual Not Detected (Not Detectd) - Radiology Data Radiology results: report reviewed, image reviewed Disposition Clinical Impression: Dysfunctional uterine bleeding Disposition: HOME SELF-CARE Instructions (If sedation given, give patient instructions): Abnormal (Dysfunctional) Uterine Bleeding (ED), Menorrhagia (ED) Additional Instructions: Return to the emergency department with any new, worsening, or concerning symptoms. Take the Toradol as needed for pain relief, do not take this with ibuprofen or another anti-inflammatory. Take the medroxyprogesterone as 2 tablets (20mg) 3 times daily for 7 days to stop the bleeding. If this causes pain or other symptoms, stop taking it. Follow-up with your [employer] regarding your symptoms. Prescriptions: Medroxyprogesterone Acetate 20 mg PO Q8H 7 Days #42 tablet Ketorolac [Toradol] 10 mg PO Q6HR PRN #12 tab PRN Reason: Pain Is patient prescribed a controlled substance at d/c from ED?: No Referrals: Stanislav Sanders MD [Primary Care Provider] - 1-2 days
[2022-03-10 10:53] LABS: INR 1.1 (<1.2); Partial Thromboplastin Time 26.8 sec (22.0-30.0); Prothrombin Time 11.5 sec (9.0-12.0)
[2022-03-10 11:17] LABS: ALT 16 U/L (4-34); AST 20 U/L (14-36); African American GFR (CKD) >90 (>60 ml/min/1.73 sqM); Albumin 4.6 g/dL (3.5-5.0); Alkaline Phosphatase 67 U/L (38-126); Anion Gap 11 mmol/L; Blood Urea Nitrogen 11 mg/dL (7-17); Calcium 8.8 mg/dL (8.4-10.2); Carbon Dioxide 21 mmol/L (22-30); Chloride 106 mmol/L (98-107); Glucose 106 mg/dL (74-99); Non-African American GFR(CKD) >90 (>60 ml/min/1.73 sqM); Potassium 4.4 mmol/L (3.5-5.1); Sodium 138 mmol/L (137-145); Total Bilirubin 0.7 mg/dL (0.2-1.3); Total Protein 7.2 g/dL (6.3-8.2)
--- NOTE | 2022-03-10 11:49 | US ---
EXAMINATION TYPE: US transvaginal DATE OF EXAM: 03/10/2022 COMPARISON: NONE CLINICAL HISTORY: Pelvic pain and bleeding. Patient started menses yesterday. Heavy bleeding TECHNIQUE: Transvaginal (TV). Date of LMP: 03-09-22 EXAM MEASUREMENTS: Uterus: 6.9 x 3.9 x 4.2 cm Endometrial Stripe: 0.6 cm Right Ovary: 3.0 x 1.8 x 1.9 cm Left Ovary: 3.2 x 2.0 x 2.4 cm 1. Uterus: Retroverted wnl 2. Endometrium: wnl 3. Right Ovary: wnl 4. Left Ovary: wnl Spectral, color and waveform doppler imaging shows good arterial and venous flow within the ovaries ; there is no evidence for ovarian torsion. 5. Bilateral Adnexa: wnl 6. Posterior cul-de-sac: wnl IMPRESSION: No significant abnormality appreciated.
[2022-03-10 13:26] VITALS: BP 110/68; PULSE 78; RESP 18; TEMP 98.6
== END 2022-03-10 12:30 | disposition home or self-care (01) ==
LOC: EC 09:49
DX: N93.8 Other specified abnormal uterine and vaginal bleeding (principal); F17.290 Nicotine dependence, other tobacco product, uncomplicated; Z91.011 Allergy to milk products; Z91.018 Allergy to other foods
CPT/HCPCS: 36415; 76830; 80053; 81001; 81025; 85025; 85610; 85730; 93975; 99284

== ENCOUNTER 2022-12-08 12:21 | Inpatient (IN) | payer MEDICAID, OTHER ==
[2022-12-08] MEDS ORDERED: DIPH,PERTUS(ACELL)TETVAC-LF 0.5 ML VIAL IM ONE (12:47)
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
[2022-12-08 13:17] LABS: Amphetamine Screen,Urine Not Detected (NotDetected); Benzodiazepines Screen,Urine Not Detected (NotDetected); Cocaine Screen,Urine Not Detected (NotDetected); Methadone Screen, Urine Not Detected (NotDetected); Opiate Screen,Urine Not Detected (NotDetected); Phencyclidine Screen,Urine Not Detected (NotDetected); Tricyclic Antidepressant,Urine Not Detected (NotDetected); Urn Cannabinoid Scrn Detected (NotDetected)
[2022-12-08 13:23] LABS: Barbiturate Screen,Urine Not Detected (NotDetected); Oxycodone Screen, Urine Not Detected (NotDetected)
[2022-12-08] MEDS ORDERED: LORazepam 2 MG/ML INJ IM ONE (15:50)
[2022-12-08] MEDS ORDERED: LIDOCAINE 1% INJ 10MG/ML (30 ML VIAL-PF) SQ STA (15:53)
[2022-12-08] MEDS ORDERED: MAGNESIUM HYDROXIDE 2,400 MG/30 ML CUP PO PRN (16:55)
[2022-12-08] MEDS ORDERED: ACETAMINOPHEN TAB 325 MG TAB PO PRN (16:55)
[2022-12-08] MEDS ORDERED: LORazepam 1 MG TAB PO PRN (16:55)
[2022-12-08] MEDS ORDERED: MAG HYDROX/AL HYDROX/SIMETH 30 ML CUP PO PRN (16:55)
[2022-12-08] MEDS ORDERED: LORazepam 2 MG/ML INJ IM PRN (17:05)
[2022-12-08] MEDS ORDERED: haloperidoL 5 MG TAB PO PRN (17:06)
[2022-12-08] MEDS ORDERED: HALOPERIDOL LACTATE 5 MG/ML 1 ML VIAL IM PRN (17:06)
[2022-12-08] MEDS ORDERED: SERTRALINE 50 MG TAB PO ONE (17:15)
[2022-12-09] MEDS ORDERED: SERTRALINE 50 MG TAB PO SCH (09:00)
[2022-12-09] MEDS: NICOTINE GUM (POLACRILEX) 2 MG GUM BUCCAL PRN ×3 (09:27→18:17)
[2022-12-09] MEDS: NICOTINE 14MG/24HR PATCH TRANSDERM SCH (10:40)
[2022-12-09 11:06] LABS: Basophils % (A) 0 %; Eosinophils # (A) 0.1 k/uL (0-0.7); Eosinophils % (A) 1 %; HCT 41.2 % (34.0-46.0); HGB 13.7 gm/dL (11.4-16.0); Lymphocytes # (A) 1.1 k/uL (1.0-4.8); Lymphocytes % (A) 14 %; MCHC 33.2 g/dL (31.0-37.0); MCV 90.2 fL (80.0-100.0); Mean Platelet Volume 8.6; Monocytes # (A) 0.4 k/uL (0-1.0); Monocytes % (A) 5 %; Neutrophils # (A) 6.3 k/uL (1.3-7.7); Neutrophils % (A) 78 %; Platelet Count 218 k/uL (150-450); RBC 4.57 m/uL (3.80-5.40); RDW 12.6 % (11.5-15.5); WBC 8.1 k/uL (4.0-11.0)
[2022-12-09 11:10] LABS: ALT 22 U/L (4-34); AST 24 U/L (14-36); African American GFR (CKD) >90 (>60 ml/min/1.73 sqM); Albumin 4.3 g/dL (3.5-5.0); Alkaline Phosphatase 60 U/L (38-126); Anion Gap 9 mmol/L; Blood Urea Nitrogen 8 mg/dL (7-17); Calcium 8.8 mg/dL (8.4-10.2); Carbon Dioxide 25 mmol/L (22-30); Chloride 103 mmol/L (98-107); Glucose 119 mg/dL (74-99); Non-African American GFR(CKD) >90 (>60 ml/min/1.73 sqM); Potassium 4.1 mmol/L (3.5-5.1); Sodium 137 mmol/L (137-145); Total Bilirubin 0.9 mg/dL (0.2-1.3); Total Protein 7.5 g/dL (6.3-8.2)
[2022-12-09] MEDS: LITHIUM CARBONATE 150 MG CAP PO SCH ×2 (11:30→21:30)
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
[2022-12-09] MEDS: HYDROCORTISONE 1% CREAM 30 GM TUBE TOPICAL PRN (12:30)
[2022-12-09] MEDS: hydrOXYzine pamoate 25 MG CAP PO PRN (13:22)
[2022-12-09 23:26] LABS: Chol/HDL Ratio 2.21 Ratio; LDL Cholesterol,Calculated 59.8 mg/dL (0.0-131.0); VLDL Calculation 8.62 mg/dL (5.00-40.00)
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
[2022-12-10] MEDS: NICOTINE 14MG/24HR PATCH TRANSDERM SCH (08:18)
[2022-12-10] MEDS: SERTRALINE 100 MG TAB PO SCH (08:18)
[2022-12-10] MEDS: LITHIUM CARBONATE 150 MG CAP PO SCH (08:18)
[2022-12-10] MEDS: NICOTINE GUM (POLACRILEX) 2 MG GUM BUCCAL PRN ×4 (10:08→19:48)
[2022-12-10] MEDS: hydrOXYzine pamoate 25 MG CAP PO PRN ×2 (10:08→16:00)
[2022-12-10] MEDS ORDERED: ACETAMINOPHEN TAB 325 MG TAB PO PRN (10:37)
--- NOTE | 2022-12-10 10:44 | P.PN ---
Progress Note - Text Progress Note Date: 12/10/22 Interval History: Patient was seen [wandering the hallways] and was directable and agreeable to speak with writer technical publications in the office. Patient appears to be less irritable today and more directable during conversation. She claims that it is her birthday today however accepts being on the mental health unit. She claims "I think I need to be here to get stuff sorted out". Claims that she is doing a bit better with guards to her mood however states that she is still fairly anxious. Claims that the Vistaril did help a little bit, we spoke about increasing the dose which she is okay with. States that she is trying to go to some groups at this time, states that her appetite is improving. States that she slept a bit better last night. At this time patient denies any suicidal or homical ideations, intent or plan. Patient denies any auditory, visual hallucinations and denies any paranoia or delusions. Patient denies any side effects from the medications and has been compliant with meds. She was requesting Tylenol and ibuprofen for the laceration on her forearm and the pain. states that the lithium she feels has been making her feel a bit drowsy in the morning time and requested to have it changed for night time. Mental Status Exam: General Appearance: Patient appears to be stated age is alert, directable, and attempts to cooperate. Patient appears to have fair hygiene and grooming. Patient has multiple tattoos. Behavior: Patient is seated without any agitated behavior. Eye contact is improving mildly. Not tearful today. Speech: Patient's speech is fluent and nonpressured. Monotone, low in volume, improving mildly. Mood/Affect: Patient reports their mood is depressed and anxious, improving mildly, affect is congruent and not tearful Suicidality/Homicidality: Patient denies having any homicidal ideation intent or plan. The patient denies any suicidal ideation no intention or plan at this time. Perceptions: Patient denies any visual hallucinations and denies any auditory hallucinations Though content/process: There is no evidence of any delusional thought content and thought process is linear. [place] Memory and concentration: AOX3, grossly intact for the purposes of this session Judgment and insight: Poor, improving mildly IMPRESSIONS: Major depressive disorder, without psychotic features cluster B personality disorder, likely borderline personality disorder cannabis use disorder nicotine dependence PLAN: -Patient is admitted under voluntary status to MHU for stabilization of psychiatric symptoms and safety. Patient signed adult voluntary form and medication consent and is placed in patient's chart. -Medications : Continue with Zoloft 100 mg by mouth daily for depression/anxiety. Changed lithium 300 mg qhs for mood stabilziation/mood adjunct. increased vistaril to 50 mg q6hr prn for anxiety. -haldol and vistaril PRN for agitation/aggression -NRT - nicotine patch -SW on board for discharge planning. Encourage patient to participate in groups to work on coping skills. patient apparently is a fpc hold. likely discharge in 1-2 days
[2022-12-10] MEDS: IBUPROFEN 600 MG TAB PO PRN (11:53)
[2022-12-10 14:02] VITALS: BMI 18.5
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
[2022-12-10] MEDS ORDERED: LITHIUM CARBONATE 300 MG CAP PO SCH (21:00)
[2022-12-11] MEDS: SERTRALINE 100 MG TAB PO SCH (08:39)
[2022-12-11] MEDS: NICOTINE 14MG/24HR PATCH TRANSDERM SCH (08:39)
[2022-12-11] MEDS: hydrOXYzine pamoate 25 MG CAP PO PRN (10:14)
[2022-12-11] MEDS ORDERED: SERTRALINE 50 MG TAB PO STA (11:20)
--- NOTE | 2022-12-11 11:30 | P.PN ---
Progress Note - Text Progress Note Date: 12/11/22 Interval History: Patient was seen taking part in activities group today and was directable and agreeable to speak with feature writer in the office. Patient appeared to be more directable today however claims that she is feeling more anxious today. She states that being on the unit and around other agitated people is making her feel even worse. She states that she had a side effect from the lithium last night and states that she was "seeing weird colors and was feeling scared". She states that she was tolerating the lower dose better and we spoke about other medication options and patient elected to have her lithium dose decreased down to 150 mg at nighttime. States that she is feeling less labile, continues to have a soft tone of voice, fairly constricted affect. States that she misses her child today. Claims that her mood is gradually improving. At this time she is denying any suicidal or homicidal ideations intent or plan. Denying any auditory or visual hallucinations. Mental Status Exam: General Appearance: Patient appears to be stated age is alert, directable, and attempts to cooperate. Patient appears to have fair hygiene and grooming. Patient has multiple tattoos. Behavior: Patient is seated without any agitated behavior. Eye contact is improving mildly. Not tearful today. Speech: Patient's speech is fluent and nonpressured. low in volume, improving mildly. Mood/Affect: Patient reports their mood is depressed and anxious, improving mildly, affect is congruent and not tearful Suicidality/Homicidality: Patient denies having any homicidal ideation intent or plan. denies any suicidal ideation no intention or plan at this time. Perceptions: Patient denies any visual hallucinations and denies any auditory hallucinations Though content/process: There is no evidence of any delusional thought content and thought process is linear. [place], focused on her medications. Memory and concentration: AOX3, grossly intact for the purposes of this session Judgment and insight: improving mildly IMPRESSIONS: Major depressive disorder, without psychotic features cluster B personality disorder, likely borderline personality disorder cannabis use disorder nicotine dependence PLAN: -Patient is admitted under voluntary status to MHU for stabilization of psyc hiatric symptoms and safety. Patient signed adult voluntary form and medication consent and is placed in patient's chart. -Medications : increase Zoloft 150 mg by mouth daily for depression/anxiety.d ecrease lithium 150 mg qhs for mood stabilziation/mood adjunct. vistaril 50 mg q6hr prn for anxiety. -haldol and vistaril PRN for agitation/aggression -NRT - nicotine patch -SW on board for discharge planning. Encourage patient to participate in groups to work on coping skills. patient apparently is a senior care hold. likely discharge in 1-2 days
[2022-12-11] MEDS: NICOTINE GUM (POLACRILEX) 2 MG GUM BUCCAL PRN ×2 (12:24→16:39)
[2022-12-11] MEDS: LITHIUM CARBONATE 150 MG CAP PO SCH (21:04)
[2022-12-11] MEDS: HYDROCORTISONE 1% CREAM 30 GM TUBE TOPICAL PRN (22:07)
[2022-12-12 07:07] VITALS: RESP 14
[2022-12-12] MEDS: SERTRALINE 50 MG TAB PO SCH (08:15)
[2022-12-12] MEDS: NICOTINE 14MG/24HR PATCH TRANSDERM SCH (08:15)
[2022-12-12] MEDS: IBUPROFEN 600 MG TAB PO PRN (08:54)
--- NOTE | 2022-12-12 09:42 | P.PN ---
Progress Note - Text Progress Note Date: 12/12/22 Interval History: Patient was seen taking part in group today and was directable and agreeable to speak with junior copywriter in the office. Patient claims that she is doing a bit better in terms of her mood and anxiety. States that she is concerned about her appetite since yesterday. States that she does not know if the medications have been suppressing her appetite. She spoke about possibly being on a appetite stimulant. Claims that she slept on and off last night after difficult time initiating sleep. States that she is trying to go to groups and participate as best as she can. Continues to focus on discharge and also missing her child. States that she is feeling less labile, continues to have a soft tone of voice, fairly constricted affect. At this time she is denying any suicidal or homicidal ideations intent or plan. Denying any auditory or visual hallucinations. Mental Status Exam: General Appearance: Patient appears to be stated age is alert, directable, and attempts to cooperate. Patient appears to have fair hygiene and grooming. Patient has multiple tattoos. Behavior: Patient is seated without any agitated behavior. Eye contact is improving mildly. Not tearful today. Speech: Patient's speech is fluent and nonpressured, improving mildly. Mood/Affect: Patient reports their mood is improving mildly, affect is congruent and improving Suicidality/Homicidality: Patient denies having any homicidal ideation intent or plan. Denies any suicidal ideation no intention or plan at this time. Perceptions: Patient denies any visual hallucinations and denies any auditory hallucinations Though content/process: There is no evidence of any delusional thought content and thought process is linear. [place], focused on her medications and some of her symptoms. Memory and concentration: AOX3, grossly intact for the purposes of this session Judgment and insight: improving mildly IMPRESSIONS: Major depressive disorder, without psychotic features cluster B personality disorder, likely borderline personality disorder cannabis use disorder nicotine dependence PLAN: -Patient is admitted under voluntary status to MHU for stabilization of psychiatric symptoms and safety. Patient signed adult voluntary form and medication consent and is placed in patient's chart. -Medications : Zoloft 150 mg by mouth daily for depression/anxiety. lithium 150 mg qhs for mood stabilziation/mood adjunct. added zyprexa 2.5 mg qhs for insomnia/appetite/mood stabilization. vistaril 50 mg q6hr prn for anxiety. -haldol and vistaril PRN for agitation/aggression -NRT - nicotine patch -SW on board for discharge planning. Encourage patient to participate in groups to work on coping skills. patient apparently is a senior living hold. likely discharge tomorrow if patient continues to improve.
[2022-12-12] MEDS: BACITRACIN/POLYMYX 500-10,000 UNIT/GM OINT 14 GM TUBE TOPICAL SCH ×2 (11:58→21:26)
[2022-12-12] MEDS: hydrOXYzine pamoate 25 MG CAP PO PRN (18:22)
[2022-12-12] MEDS: LITHIUM CARBONATE 150 MG CAP PO SCH (20:51)
[2022-12-12] MEDS: NICOTINE GUM (POLACRILEX) 2 MG GUM BUCCAL PRN (20:54)
[2022-12-12] MEDS ORDERED: OLANZapine 2.5 MG TAB PO SCH (21:00)
[2022-12-13 07:02] VITALS: BP 114/55; PULSE 90; TEMP 97.6
[2022-12-13] MEDS: SERTRALINE 50 MG TAB PO SCH (08:18)
[2022-12-13] MEDS: NICOTINE 14MG/24HR PATCH TRANSDERM SCH (08:18)
[2022-12-13] MEDS: BACITRACIN/POLYMYX 500-10,000 UNIT/GM OINT 14 GM TUBE TOPICAL SCH (08:41)
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
[2022-12-13] MEDS: HYDROCORTISONE 1% CREAM 30 GM TUBE TOPICAL PRN (10:30)
[2022-12-13] MEDS: NICOTINE GUM (POLACRILEX) 2 MG GUM BUCCAL PRN (10:33)
== END 2022-12-13 13:20 | DRG 754 ==
LOC: EC 12:21 → 3MHU 16:52
PROVIDERS: ADMIT Psychiatry & Neurology Psychiatry; ATTEND Psychiatry & Neurology Psychiatry
DX: F32.9 Major depressive disorder, single episode, unspecified (principal); F12.10 Cannabis abuse, uncomplicated; F17.210 Nicotine dependence, cigarettes, uncomplicated; F43.10 Post-traumatic stress disorder, unspecified; F41.9 Anxiety disorder, unspecified; F60.3 Borderline personality disorder; G47.00 Insomnia, unspecified; F60.89 Other specific personality disorders; M79.7 Fibromyalgia; R45.851 Suicidal ideations; S51.812A Laceration without foreign body of left forearm, initial encounter; Y04.0XXA Assault by unarmed brawl or fight, initial encounter; Z81.8 Family history of other mental and behavioral disorders; Z91.51 Personal history of suicidal behavior; Z79.899 Other long term (current) drug therapy; Z71.3 Dietary counseling and surveillance; Z28.21 Immunization not carried out because of patient refusal; Z20.822 Contact with and (suspected) exposure to COVID-19
CPT/HCPCS: 12002; 80053; 80061; 80306; 81025; 82075; 83036; 84443; 85025; 87635; 96374; 99285

== ENCOUNTER 2022-12-16 13:24 | Emergency (ER) | payer OTHER ==
--- NOTE | 2022-12-16 14:35 | ED ---
General Adult HPI - General Chief complaint: Skin/Abscess/Foreign Body Stated complaint: wound infection Time Seen by Provider: 12/16/22 13:49 Source: patient, RN notes reviewed Mode of arrival: ambulatory - History of Present Illness Initial comments: 22-year-old female presents emergency department chief complaining of drainage and pain at site of wound that just had sutures removed. States that she had sutures in her left arm for 8 days. She does have them removed today and there is pus coming from the wound and multiple pustules with sutures were. Patient states that the area is painful to touch. She denies fever, chills, nausea, vomiting. - Related Data Previous Rx's Medication Instructions Recorded Bacitracin/Polymyx Oint 1 applic TOPICAL BID 30 Days #1 12/13/22 [Polysporin Oint] each Hydrocortisone Cream 1 applic TOPICAL BID PRN #1 each 12/13/22 [Hydrocortisone 1% Cream] Ibuprofen [Motrin] 600 mg PO Q8H PRN tab 12/13/22 [employer] Carbonate 150 mg PO HS 30 Days #30 cap 12/13/22 Nicotine 14Mg/24Hr Patch [Habitrol] 1 patch TRANSDERM DAILY 14 Days 12/13/22 #14 patch OLANZapine [ZyPREXA] 2.5 mg PO HS 30 Days #30 tab 12/13/22 Sertraline [Zoloft] 150 mg PO DAILY 30 Days #90 tab 12/13/22 hydrOXYzine pamoate [Vistaril] 50 mg PO DAILY PRN 30 Days #60 cap 12/13/22 Cephalexin [Keflex] 500 mg PO BID #14 cap 12/16/22 Allergies Allergy/AdvReac Type Severity Reaction Status Date / Time cinnamon Allergy Swelling Verified 12/08/22 18:45 Review of Systems ROS Statement: Those systems with pertinent positive or pertinent negative responses have been documented in the HPI. ROS Other: All systems not noted in ROS Statement are negative. 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 bipolor, depression. illicit drug use General Exam Limitations: no limitations General appearance: alert, in no apparent distress Head exam: Present: atraumatic, normocephalic, normal inspection Eye exam: Present: normal appearance ENT exam: Present: normal exam, mucous membranes moist Neck exam: Present: normal inspection. Absent: tenderness, meningismus, lymphadenopathy Respiratory exam: Present: normal lung sounds bilaterally. Absent: respiratory distress, wheezes, rales, rhonchi, stridor Cardiovascular Exam: Present: regular rate, normal rhythm, normal heart sounds. Absent: systolic murmur, diastolic murmur, rubs, gallop, clicks Extremities exam: Present: normal inspection, full ROM, normal capillary refill. Absent: tenderness, pedal edema, joint swelling, calf tenderness Back exam: Present: normal inspection Neurological exam: Present: alert, oriented X3 Psychiatric exam: Present: normal affect, normal mood Skin exam: Present: warm, dry, other (Healing wound to the patient's left arm with some purulent drainage, induration, tenderness) Course Vital Signs 12/16/22 12/16/22 13:25 14:37 Temperature 98.7 F 98.6 F Pulse Rate 92 100 Respiratory 18 16 Rate Blood Pressure 115/72 114/68 O2 Sat by Pulse 97 Oximetry Medical Decision Making - Medical Decision Making Was pt. sent in by a medical professional or institution (, PA, ORTHOPEDIC DESIGNER, urgent care, hospital, or residential...) When possible be specific @ -No Did you speak to anyone other than the patient for history (EMS, parent, family, police, friend...)? What history was obtained from this source @ -No Did you review nursing and triage notes (agree or disagree)? Why? @ -I reviewed and agree with nursing and triage notes Were old charts reviewed (outside hosp., previous admission, EMS record, old EKG, old radiological studies, urgent care reports/EKG's, residential records)? Report findings @ -No old charts were reviewed Differential Diagnosis (chest pain, altered mental status, abdominal pain women, abdominal pain men, vaginal bleeding, weakness, fever, dyspnea, syncope, headache, dizziness, GI bleed, back pain, seizure, CVA, palpatations, mental health, musculoskeletal)? @ -Wound infection, cellulitis, EKG interpreted by me (3pts min.). @ -None X-rays interpreted by me (1pt min.). @ -None done CT interpreted by me (1pt min.). @ -None done U/S interpreted by me (1pt. min.). @ -None done What testing was considered but not performed or refused? (CT, X-rays, U/S, labs)? Why? @ -None What meds were considered but not given or refused? Why? @ -None Did you discuss the management of the patient with other professionals (professionals i.e. , PA, ORTHOPEDIC DESIGNER, lab, RT, psych nurse, social sciences instructor, hazardous waste material technician, teacher, investment officer, family service caseworker)? Give summary @ -No Was smoking cessation discussed for >3mins.? @ -No Was critical care preformed (if so, how long)? @ -No Were there social determinants of health that impacted care today? How? (Homelessness, low income, unemployed, alcoholism, drug addiction, transportation, low edu. Level, literacy, decrease access to med. care, residential, r ehab)? @ -No Was there de-escalation of care discussed even if they declined (Discuss DNR or withdrawal of care, Hospice)? DNR status @ -No What co-morbidities impacted this encounter? (DM, HTN, Smoking, COPD, CAD, Cancer, CVA, ARF, Chemo, Hep., AIDS, mental health diagnosis, sleep apnea, morbid obesity)? @ -None Was patient admitted / discharged? Hospital course, mention meds given and route, prescriptions, significant lab abnormalities, going to OR and other pertinent info. @ -discharged. Patient presents in the emergency department with chief complaint of pain in the area of a wound that had the sutures removed with some purulent drainage and induration. Patient likely has an infection to the wound. Patient is not having any systemic symptoms at this time. Patient stable for outpatient antibiotics which are sent to patients pharmacy. Case discussed my attending, Dr. Gomez. Undiagnosed new problem with uncertain prognosis? @ -No Drug Therapy requiring intensive monitoring for toxicity (Heparin, Nitro, Insulin, Cardizem)? @ -No Were any procedures done? @ -No Diagnosis/symptom? @ -Wound infection Acute, or Chronic, or Acute on Chronic? @ -acute Uncomplicated (without systemic symptoms) or Complicated (systemic symptoms)? @ -uncomplicated Side effects of treatment? @ -No Exacerbation, Progression, or Severe Exacerbation? @ -No Poses a threat to life or bodily function? How? (Chest pain, USA, CA, pneumonia, PE, COPD, DKA, ARF, appy, cholecystitis, CVA, Diverticulitis, Homicidal, Suicidal, threat to staff... and all critical care pts) @ -No Disposition Clinical Impression: Infected laceration Disposition: HOME SELF-CARE Condition: Stable Instructions (If sedation given, give patient instructions): Acute Wound Care (ED) Additional Instructions: Please return to the emergency department for new or worsening symptoms. Prescriptions: Cephalexin [Keflex] 500 mg PO BID #14 cap Is patient prescribed a controlled substance at d/c from ED?: No Referrals: Stanislav Sanders MD [Primary Care Provider] - 1-2 days Time of Disposition: 14:32
[2022-12-16 14:39] VITALS: BP 114/68; PULSE 100; RESP 16; TEMP 98.6
== END 2022-12-16 14:49 | disposition home or self-care (01) ==
LOC: EC 13:24
DX: T81.49XA Infection following a procedure, other surgical site, initial encounter (principal); F17.290 Nicotine dependence, other tobacco product, uncomplicated; Z91.018 Allergy to other foods; Z86.59 Personal history of other mental and behavioral disorders
CPT/HCPCS: 99282

== ENCOUNTER 2023-04-28 04:25 | Emergency (ER) | payer OTHER ==
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
[2023-04-28] MEDS ORDERED: ACETAMINOPHEN TAB 325 MG TAB PO STA (07:43)
[2023-04-28] MEDS ORDERED: IBUPROFEN 600 MG TAB PO STA (07:43)
[2023-04-28 08:18] VITALS: BP 107/68; PULSE 76; RESP 18; TEMP 98.1
== END 2023-04-28 07:58 | disposition home or self-care (01) ==
LOC: EC 04:25
DX: S00.83XA Contusion of other part of head, initial encounter (principal); Z91.018 Allergy to other foods; Y04.0XXA Assault by unarmed brawl or fight, initial encounter
CPT/HCPCS: 70450; 70486; 99284

== ENCOUNTER 2023-04-29 13:40 | Emergency (ER) | payer OTHER ==
[2023-04-29] MEDS ORDERED: PROPARACAINE 0.5% OPHTH DROPS 15 ML BTL RIGHT EYE STA (15:08)
[2023-04-29] MEDS ORDERED: FLUORESCEIN STRIPS 1 MG STRIP RIGHT EYE ONE (15:08)
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
[2023-04-29 16:49] VITALS: RESP 18
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
[2023-04-29 18:46] VITALS: BP 111/71; PULSE 68; TEMP 97.9
== END 2023-04-29 18:46 | disposition home or self-care (01) ==
LOC: EC 13:40
DX: R51.9 Headache, unspecified (principal); F41.9 Anxiety disorder, unspecified; F17.290 Nicotine dependence, other tobacco product, uncomplicated; F31.9 Bipolar disorder, unspecified; Z79.899 Other long term (current) drug therapy; Z91.018 Allergy to other foods
CPT/HCPCS: 70450; 72125; 99285

== ENCOUNTER 2023-09-02 16:53 | Inpatient (IN) | payer MEDICAID, OTHER ==
[2023-09-02 17:54] LABS: Basophils # (A) 0.1 k/uL (0-0.2); Basophils % (A) 0 %; Eosinophils % (A) 0 %; HCT 39.1 % (34.0-46.0); Lymphocytes # (A) 1.2 k/uL (1.0-4.8); Lymphocytes % (A) 7 %; MCH 29.3 pg (25.0-35.0); MCHC 33.4 g/dL (31.0-37.0); MCV 87.8 fL (80.0-100.0); Mean Platelet Volume 8.3; Monocytes # (A) 0.4 k/uL (0-1.0); Monocytes % (A) 2 %; Neutrophils # (A) 16.3 k/uL (1.3-7.7); Neutrophils % (A) 90 %; Platelet Count 290 k/uL (150-450); RBC 4.45 m/uL (3.80-5.40); RDW 13.2 % (11.5-15.5); WBC 18.2 k/uL (3.8-10.6)
[2023-09-02 18:05] LABS: Acetaminophen <10.0 ug/mL; Alcohol <10 mg/dL; Salicylate <1.0 mg/dL
--- NOTE | 2023-09-02 18:36 | ED ---
Overdose HPI - General Chief Complaint: Overdose Stated Complaint: overdose Source: patient, EMS Mode of arrival: EMS Limitations: no limitations - History of Present Illness Initial Comments: 22-year-old female who presents to the emergency department after acute inges tion. Patient states that around 1 PM she took 15 to 20 tablets of her lithium 300 mg in an attempt to harm herself. She has now developed nausea, vomiting and shakiness. She denies taking any other medications to hurt herself. Denies alcohol or drug use. Does admit that she was and had an on the first. She continues to have some bleeding. She admits to generalized abdominal achiness. EMS did obtain an IV and gave the patient 400 cc of normal saline. No other alleviating, precipitating or modifying factors - Related Data Home Medications Medication Instructions Recorded Confirmed Litchfield Carbonate [Litchfield 300 mg PO HS 09/02/23 09/02/23 Carbonate ER] Sertraline [Zoloft] 50 mg PO DAILY 09/02/23 09/02/23 Allergies Allergy/AdvReac Type Severity Reaction Status Date / Time cinnamon Allergy Swelling Verified 09/02/23 19:36 of tongue Review of Systems ROS Statement: Those systems with pertinent positive or pertinent negative responses have been documented in the HPI. ROS Other: All systems not noted in ROS Statement are negative. 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 bipolor, depression. illicit drug use General Exam Limitations: no limitations General appearance: alert, anxious Head exam: Present: atraumatic, normocephalic, normal inspection Eye exam: Present: normal appearance, PERRL, EOMI. Absent: scleral icterus, conjunctival injection, periorbital swelling ENT exam: Present: normal exam, mucous membranes moist Neck exam: Present: normal inspection. Absent: tenderness, meningismus, lymphadenopathy Respiratory exam: Present: normal lung sounds bilaterally. Absent: respiratory distress, wheezes, rales, rhonchi, stridor Cardiovascular Exam: Present: bradycardia, normal heart sounds. Absent: systolic murmur, diastolic murmur, rubs, gallop, clicks GI/Abdominal exam: Present: soft, normal bowel sounds. Absent: distended, tenderness, guarding, rebound, rigid Extremities exam: Present: normal inspection, full ROM, normal capillary refill. Absent: tenderness, pedal edema, joint swelling, calf tenderness Back exam: Present: normal inspection Neurological exam: Present: alert, oriented X3, CN II-XII intact Psychiatric exam: Present: depressed, suicidal ideation Skin exam: Present: warm, dry, intact, normal color. Absent: rash Course Vital Signs 09/02/23 09/02/23 09/02/23 17:00 18:23 21:00 Temperature 97.4 F L Pulse Rate 54 L 77 Pulse Rate [ 54 L Journeyman Painter ] Respiratory 16 16 Rate Blood Pressure 124/75 125/76 O2 Sat by Pulse 99 98 Oximetry 09/02/23 09/03/23 09/03/23 22:00 00:00 07:04 Temperature Pulse Rate 69 68 68 Pulse Rate [ Journeyman Painter ] Respiratory 18 20 18 Rate Blood Pressure 117/68 126/78 94/57 O2 Sat by Pulse 97 97 98 Oximetry 09/03/23 09/03/23 11:00 20:09 Temperature Pulse Rate 66 58 L Pulse Rate [ Journeyman Painter ] Respiratory 18 16 Rate Blood Pressure 96/64 92/58 O2 Sat by Pulse 99 96 Oximetry Medical Decision Making - Medical Decision Making Was pt. sent in by a medical professional or institution (, PA, IMPORT MANAGER, urgent care, hospital, or prison...) When possible be specific @ -No Did you speak to anyone other than the patient for history (EMS, parent, family, police, friend...)? What history was obtained from this source @ -EMS Did you review nursing and triage notes (agree or disagree)? Why? @ -I reviewed and agree with nursing and triage notes Were old charts reviewed (outside hosp., previous admission, EMS record, old EKG, old radiological studies, urgent care reports/EKG's, prison records)? Report findings @ -No old charts were reviewed Differential Diagnosis (chest pain, altered mental status, abdominal pain women, abdominal pain men, vaginal bleeding, weakness, fever, dyspnea, syncope, headache, dizziness, GI bleed, back pain, seizure, CVA, palpatations, mental health, musculoskeletal)? @ -Differential Mental Health Depression, anxiety, bipolar, psychosis, schizophrenia, borderline personality, situational depression, adjustment disorder, behavioral disorder, brain tumor, malingering, substance abuse, encephalopathy, medication reaction, dementia, hypothyroidism, degenerative neurologic disorder, lupus.... This is not meant to be all-inclusive list EKG interpreted by me (3pts min.). @ -Yes and demonstrates sinus bradycardia with a rate of 52. QRS 80. QTc of 459. Significant baseline artifact X-rays interpreted by me (1pt min.). @ -None done CT interpreted by me (1pt min.). @ -None done U/S interpreted by me (1pt. min.). @ -None done What testing was considered but not performed or refused? (CT, X-rays, U/S, labs)? Why? @ -None What meds were considered but not given or refused? Why? @ -None Did you discuss the management of the patient with other professionals (professionals i.e. , PA, IMPORT MANAGER, lab, RT, psych nurse, drug abuse social worker, practice professional, teacher, president and chief executive officer, field nurse case manager)? Give summary @ -No Was smoking cessation discussed for >3mins.? @ -No Was critical care preformed (if so, how long)? @ -No Were there social determinants of health that impacted care today? How? (Homelessness, low income, unemployed, alcoholism, drug addiction, transportation, low edu. Level, literacy, decrease access to med. care, assisted, rehab)? @ -No Was there de-escalation of care discussed even if they declined (Discuss DNR or withdrawal of care, Hospice)? DNR status @ -No What co-morbidities impacted this encounter? (DM, HTN, Smoking, COPD, CAD, Cancer, CVA, ARF, Chemo, Hep., AIDS, mental health diagnosis, sleep apnea, morbid obesity)? @ -Depression Was patient admitted / discharged? Hospital course, mention meds given and route, prescriptions, significant lab abnormalities, going to OR and other pertinent info. @ -Upon arrival patient was placed into room 13. Thorough history and physical exam was performed. IV access was established. Laboratory studies are conducted. Twelve-lead EKG was obtained. We did speak with poison control. Litchfield level is 2. We will trend this in 4 hours. If lithium level is going down, the patient may be medically clear. She will be signed out to Dr. Hernandez Undiagnosed new problem with uncertain prognosis? @Yes Drug Therapy requiring intensive monitoring for toxicity (Heparin, Nitro, Insuli n, Cardizem)? @ -No Were any procedures done? @ -No Diagnosis/symptom? @ -Acute lithium injection, acute suicide attempt, recent with Acute, or Chronic, or Acute on Chronic? @ -Acute Uncomplicated (without systemic symptoms) or Complicated (systemic symptoms)? @ -Complicated Side effects of treatment? @ -No Exacerbation, Progression, or Severe Exacerbation? @ -No Poses a threat to life or bodily function? How? (Chest pain, [place], [place], pneumonia, PE, COPD, DKA, ARF, appy, cholecystitis, CVA, Diverticulitis, Homicidal, Suicidal, threat to staff... and all critical care pts) @ -Yes patient actively trying to kill herself - Lab Data Result diagrams: 09/07/23 06:37 09/05/23 06:29 Lab Results 09/02/23 09/02/23 09/02/23 Range/Units 17:49 17:49 19:00 WBC 18.2 H (3.8-10.6) k/uL RBC 4.45 (3.80-5.40) m/uL Hgb 13.0 (11.4-16.0) gm/dL Hct 39.1 (34.0-46.0) % MCV 87.8 (80.0-100.0) fL MCH 29.3 (25.0-35.0) pg MCHC 33.4 (31.0-37.0) g/dL RDW 13.2 (11.5-15.5) % Plt Count 290 (150-450) k/uL MPV 8.3 Neutrophils % 90 % Lymphocytes % 7 % Monocytes % 2 % Eosinophils % 0 % Basophils % 0 % Neutrophils # 16.3 H (1.3-7.7) k/uL Lymphocytes # 1.2 (1.0-4.8) k/uL Monocytes # 0.4 (0-1.0) k/uL Eosinophils # 0.0 (0-0.7) k/uL Basophils # 0.1 (0-0.2) k/uL Sodium 142 (137-145) mmol/L Potassium 4.1 (3.5-5.1) mmol/L Chloride 111 H (98-107) mmol/L Carbon Dioxide 20 L (22-30) mmol/L Anion Gap 11 mmol/L BUN 8 (7-17) mg/dL Creatinine 0.59 (0.52-1.04) mg/dL Est GFR (CKD-EPI)AfAm >90 (>60 ml/min/1.73 sqM) Est GFR (CKD-EPI)NonAf >90 (>60 ml/min/1.73 sqM) Glucose 111 H (74-99) mg/dL Calcium 9.4 (8.4-10.2) mg/dL Total Bilirubin 0.7 (0.2-1.3) mg/dL AST 25 (14-36) U/L ALT 17 (4-34) U/L Alkaline Phosphatase 76 (38-126) U/L Total Protein 7.8 (6.3-8.2) g/dL Albumin 4.7 (3.5-5.0) g/dL HCG, Quant mIU/mL Urine Color Urine Appearance (Clear) Urine pH (5.0-8.0) Ur Specific [place] (1.001-1.035) Urine Protein (Negative) Urine Glucose (UA) (Negative) Urine Ketones (Negative) Urine Blood (Negative) Urine Nitrite (Negative) Urine Bilirubin (Negative) Urine Urobilinogen (<2.0) mg/dL Ur Leukocyte Esterase (Negative) Urine RBC (0-5) /hpf Urine WBC (0-5) /hpf Ur Squamous Epith Cells (0-4) /hpf Urine Bacteria (None) /hpf Salicylates <1.0 mg/dL Urine Opiates Screen (NotDetected) Ur Oxycodone Screen (NotDetected) Urine Methadone Screen (NotDetected) Acetaminophen <10.0 ug/mL Ur Barbiturates Screen (NotDetected) U Tricyclic Antidepress (NotDetected) Ur Phencyclidine Scrn (NotDetected) Ur Amphetamines Screen (NotDetected) U Methamphetamines Scrn (NotDetected) U Benzodiazepines Scrn (NotDetected) Litchfield 2.0 H* mmol/L Urine Cocaine Screen (NotDetected) U Marijuana (THC) Screen (NotDetected) Serum Alcohol <10 mg/dL SARS-CoV-2 (PCR) (Not Detectd) 09/02/23 09/02/23 09/03/23 Range/Units 21:14 23:55 11:25 WBC (3.8-10.6) k/uL RBC (3.80-5.40) m/uL Hgb (11.4-16.0) gm/dL Hct (34.0-46.0) % MCV (80.0-100.0) fL MCH (25.0-35.0) pg MCHC (31.0-37.0) g/dL RDW (11.5-15.5) % Plt Count (150-450) k/uL MPV Neutrophils % % Lymphocytes % % Monocytes % % Eosinophils % % Basophils % % Neutrophils # (1.3-7.7) k/uL Lymphocytes # (1.0-4.8) k/uL Monocytes # (0-1.0) k/uL Eosinophils # (0-0.7) k/uL Basophils # (0-0.2) k/uL Sodium (137-145) mmol/L Potassium (3.5-5.1) mmol/L Chloride (98-107) mmol/L Carbon Dioxide (22-30) mmol/L Anion Gap mmol/L BUN (7-17) mg/dL Creatinine (0.52-1.04) mg/dL Est GFR (CKD-EPI)AfAm (>60 ml/min/1.73 sqM) Est GFR (CKD-EPI)NonAf (>60 ml/min/1.73 sqM) Glucose (74-99) mg/dL Calcium (8.4-10.2) mg/dL Total Bilirubin (0.2-1.3) mg/dL AST (14-36) U/L ALT (4-34) U/L Alkaline Phosphatase (38-126) U/L Total Protein (6.3-8.2) g/dL Albumin (3.5-5.0) g/dL HCG, Quant 294.2 mIU/mL Urine Color Colorless Urine Appearance Clear (Clear) Urine pH 7.5 (5.0-8.0) Ur Specific [place] 1.006 (1.001-1.035) Urine Protein Negative (Negative) Urine Glucose (UA) Negative (Negative) Urine Ketones Negative (Negative) Urine Blood Moderate H (Negative) Urine Nitrite Negative (Negative) Urine Bilirubin Negative (Negative) Urine Urobilinogen <2.0 (<2.0) mg/dL Ur Leukocyte Esterase Negative (Negative) Urine RBC 31 H (0-5) /hpf Urine WBC 4 (0-5) /hpf Ur Squamous Epith Cells 1 (0-4) /hpf Urine Bacteria Rare H (None) /hpf Salicylates mg/dL Urine Opiates Screen Not Detected (NotDetected) Ur Oxycodone Screen Not Detected (NotDetected) Urine Methadone Screen Not Detected (NotDetected) Acetaminophen ug/mL Ur Barbiturates Screen Not Detected (NotDetected) U Tricyclic Antidepress Not Detected (NotDetected) Ur Phencyclidine Scrn Not Detected (NotDetected) Ur Amphetamines Screen Not Detected (NotDetected) U Methamphetamines Scrn Not Detected (NotDetected) U Benzodiazepines Scrn Not Detected (NotDetected) [place] 1.6 1.1 mmol/L Urine Cocaine Screen Not Detected (NotDetected) U Marijuana (THC) Screen Detected H (NotDetected) Serum Alcohol mg/dL SARS-CoV-2 (PCR) (Not Detectd) 09/03/23 Range/Units 12:08 WBC (3.8-10.6) k/uL RBC (3.80-5.40) m/uL Hgb (11.4-16.0) gm/dL Hct (34.0-46.0) % MCV (80.0-100.0) fL MCH (25.0-35.0) pg MCHC (31.0-37.0) g/dL RDW (11.5-15.5) % Plt Count (150-450) k/uL MPV Neutrophils % % Lymphocytes % % Monocytes % % Eosinophils % % Basophils % % Neutrophils # (1.3-7.7) k/uL Lymphocytes # (1.0-4.8) k/uL Monocytes # (0-1.0) k/uL Eosinophils # (0-0.7) k/uL Basophils # (0-0.2) k/uL Sodium (137-145) mmol/L Potassium (3.5-5.1) mmol/L Chloride (98-107) mmol/L Carbon Dioxide (22-30) mmol/L Anion Gap mmol/L BUN (7-17) mg/dL Creatinine (0.52-1.04) mg/dL Est GFR (CKD-EPI)AfAm (>60 ml/min/1.73 sqM) Est GFR (CKD-EPI)NonAf (>60 ml/min/1.73 sqM) Glucose (74-99) mg/dL Calcium (8.4-10.2) mg/dL Total Bilirubin (0.2-1.3) mg/dL AST (14-36) U/L ALT (4-34) U/L Alkaline Phosphatase (38-126) U/L Total Protein (6.3-8.2) g/dL Albumin (3.5-5.0) g/dL HCG, Quant mIU/mL Urine Color Urine Appearance (Clear) Urine pH (5.0-8.0) Ur Specific [place] (1.001-1.035) Urine Protein (Negative) Urine Glucose (UA) (Negative) Urine Ketones (Negative) Urine Blood (Negative) Urine Nitrite (Negative) Urine Bilirubin (Negative) Urine Urobilinogen (<2.0) mg/dL Ur Leukocyte Esterase (Negative) Urine RBC (0-5) /hpf Urine WBC (0-5) /hpf Ur Squamous Epith Cells (0-4) /hpf Urine Bacteria (None) /hpf Salicylates mg/dL Urine Opiates Screen (NotDetected) Ur Oxycodone Screen (NotDetected) Urine Methadone Screen (NotDetected) Acetaminophen ug/mL Ur Barbiturates Screen (NotDetected) U Tricyclic Antidepress (NotDetected) Ur Phencyclidine Scrn (NotDetected) Ur Amphetamines Screen (NotDetected) U Methamphetamines Scrn (NotDetected) U Benzodiazepines Scrn (NotDetected) [place] mmol/L Urine Cocaine Screen (NotDetected) U Marijuana (THC) Screen (NotDetected) Serum Alcohol mg/dL SARS-CoV-2 (PCR) Not Detected (Not Detectd) Disposition Clinical Impression: Depression Disposition: TRANSFER TO PSYCH HOSP/UNIT Condition: Serious Is patient prescribed a controlled substance at d/c from ED?: No
[2023-09-02] MEDS: KETOROLAC 15 MG/ML 1 ML VIAL IVP STA (18:49)
[2023-09-02] MEDS: SODIUM CHLORIDE 0.9% 1,000 ML IV ONE (18:50)
[2023-09-02 19:09] LABS: ALT 17 U/L (4-34); AST 25 U/L (14-36); African American GFR (CKD) >90 (>60 ml/min/1.73 sqM); Albumin 4.7 g/dL (3.5-5.0); Alkaline Phosphatase 76 U/L (38-126); Anion Gap 11 mmol/L; Blood Urea Nitrogen 8 mg/dL (7-17); Calcium 9.4 mg/dL (8.4-10.2); Carbon Dioxide 20 mmol/L (22-30); Chloride 111 mmol/L (98-107); Glucose 111 mg/dL (74-99); Non-African American GFR(CKD) >90 (>60 ml/min/1.73 sqM); Potassium 4.1 mmol/L (3.5-5.1); Sodium 142 mmol/L (137-145); Total Bilirubin 0.7 mg/dL (0.2-1.3); Total Protein 7.8 g/dL (6.3-8.2)
[2023-09-02 21:45] LABS: Lithium 1.6 mmol/L
[2023-09-02 22:05] LABS: HCG,Quantitative Serum 294.2 mIU/mL
[2023-09-02] MEDS: SODIUM CHLORIDE 0.9% 1,000 ML IV STA (23:53)
[2023-09-03 00:18] LABS: Appearance,Urine Clear (Clear); Bacteria,Urine Rare /hpf; Bilirubin,Urine Negative (Negative); Blood,Urine Moderate (Negative); Color,Urine Colorless; Glucose,Urine (UA) Negative (Negative); Ketones,Urine Negative (Negative); Leukocyte Esterase,Urine Negative (Negative); Nitrite,Urine Negative (Negative); PH, Urine 7.5 (5.0-8.0); Protein,Urine Negative (Negative); RBC,Urine 31 /hpf (0-5); Specific Gravity,Urine 1.006 (1.001-1.035); Squamous Epithelial Cell,Urine 1 /hpf (0-4); Urobilinogen,Urine <2.0 mg/dL (<2.0); WBC,Urine 4 /hpf (0-5)
[2023-09-03 00:38] LABS: Amphetamine Screen,Urine Not Detected (NotDetected); Barbiturate Screen,Urine Not Detected (NotDetected); Benzodiazepines Screen,Urine Not Detected (NotDetected); Cocaine Screen,Urine Not Detected (NotDetected); Methadone Screen, Urine Not Detected (NotDetected); Opiate Screen,Urine Not Detected (NotDetected); Oxycodone Screen, Urine Not Detected (NotDetected); Phencyclidine Screen,Urine Not Detected (NotDetected); Tricyclic Antidepressant,Urine Not Detected (NotDetected); Urn Cannabinoid Scrn Detected (NotDetected)
[2023-09-03] MEDS ORDERED: ACETAMINOPHEN TAB 325 MG TAB PO PRN (17:46)
[2023-09-03] MEDS ORDERED: MAG HYDROX/AL HYDROX/SIMETH 355 ML BOTTLE PO PRN (17:46)
[2023-09-03] MEDS ORDERED: IBUPROFEN 600 MG TAB PO PRN (17:46)
[2023-09-03] MEDS ORDERED: MAGNESIUM HYDROXIDE 2,400 MG/30 ML CUP PO PRN (17:46)
[2023-09-03] MEDS ORDERED: LORazepam 1 MG TAB PO PRN (17:46)
[2023-09-03] MEDS ORDERED: haloperidoL 5 MG TAB PO PRN (17:46)
[2023-09-03] MEDS: LORazepam 2 MG/ML INJ IM STA (18:16)
[2023-09-03] MEDS: HALOPERIDOL LACTATE 5 MG/ML 1 ML VIAL IM PRN (18:16)
[2023-09-03] MEDS: LORazepam 2 MG/ML INJ IV STA (18:19)
[2023-09-03] MEDS: ZIPRASIDONE 20 MG VIAL IM STA (18:39)
--- NOTE | 2023-09-03 21:53 | P.PN ---
Progress Note - Text Progress Note Date: 09/03/23 notified of new consult , sedated due to aggressive behavior
[2023-09-04] MEDS: SERTRALINE 50 MG TAB PO SCH (08:56)
[2023-09-04] MEDS: NICOTINE 14MG/24HR PATCH TRANSDERM SCH (08:56)
[2023-09-04 09:18] LABS: HCG,Quantitative Serum 309.5 mIU/mL
[2023-09-04 09:56] LABS: Lithium 0.8 mmol/L
--- NOTE | 2023-09-04 10:13 | P.MDCNMH ---
<Marcelo Romo - Last Filed: 09/04/23 16:19> History of Present Illness H&P Date: 09/04/23 History of Presenting Illness: Patient is a 22-year-old female with a past medical history of anxiety, depression, bipolar disorder, PTSD, and fibromyalgia. She presented to the emergency department on 09/02/2023 after reported suicidal attempt via overdose on lithium. Patient reported taking approximately 15 to 20 tablets of her 300 mg lithium pills in an attempt to hurt herself. Patient also reports recent and medication induced . She underwent full evaluation in the emergency department. Labs were completed and reviewed. CBC showing lani kocytosis with WBC count of 18.2. BMP revealed metabolic acidosis with chloride of 111, bicarb of 20, and anion gap of 11. Liver profile was normal findings. hCG qualitative 294.2. Urinalysis positive for blood and 31 RBCs but negative for infection. Urine drug screen negative. Salicylate level less than 1.0. Acetaminophen level less than 10.0. Initial lithium level 2.0. Initial EKG showing sinus mechanism at 52 bpm with QT/QTc 478/459 ms and QRS duration of 80 ms. Patient was admitted to psychiatry unit. We received consult this morning from mental health unit for medical management. Patient seen and fully evaluated at the bedside. She reports still having mild vaginal bleeding stating moderate vaginal bleeding stopped yesterday. Patient is a [id number]. She reports that her last menstrual cycle began on 07/19/2023 and that she had a positive urine test at her psychiatrist office on 08/14/2023 and reached out to a virtual online center called [facility] and received methotrexate on 08/17/2023. Patient reports that she took her first dose on 08/17/2023 and began vaginal bleeding on 08/18/2023. Patient reports taking a total of 3 doses of the methotrexate but was on sure of dosage. Patient reports she has had persistent vaginal bleeding since 08/18/2023. Patient currently denies any other complaints at this time including abdominal pain or cramping, nausea, vomiting, recent fevers or chills, or experiencing any pelvic pain. Currently vital signs show blood pressure 101/52, heart rate 48, respiratory rate 14, temp 97.7 F, and SpO2 of 97% on room air. Review of systems: Pertinent positives and negatives as discussed in HPI, a complete review of systems was performed and all other systems are negative. Physical exam: Vital signs reviewed and stable. General: Nontoxic, no distress and appears stated age. Derm: Skin warm and dry, normal coloration for ethnicity. Head: Atraumatic, normocephalic and symmetric. Eyes: EOMs intact, no lid lag, and anicteric sclera Mouth: no lip lesions, mucus membranes moist Cardiovascular: regular rate and rhythm with normal S1S2, no murmur, positive posterior tibial pulses bilaterally, and cap refill < 2 seconds. Lungs: Respirations even, regular, and unlabored on room air. Lungs CTA bilaterally, no rhonchi, no rales, no wheezing, and no accessory muscle usage. Abdominal: soft, nontender to palpation, no guarding, no appreciable organomegaly Ext: ROM intact. No gross muscle atrophy, no edema, no contractures Neuro: Speech clear, face symmetrical and CN II-XII grossly intact with no noted focal neuro deficits Psych: Alert and oriented to person, place, time, and situation. Appropriate and pleasant affect. Assessment and Plan of Care: Significant leukocytosis Persistent vaginal bleeding status post medication induced Elevated hCG qualitative status post recent medication induced -Persistent vaginal bleeding and leukocytosis are concerning for retained products of conception with patient's recent medication induced . -Order placed for stat transvaginal ultrasound -Order placed for repeat CBC to follow-up on repeat hemoglobin and WBC count, CMP, and repeat hCG quant -Order placed for vital signs every 6 hours and discussed with nursing staff to notify provider immediately if patient becomes febrile or develops any further complaints. Asymptomatic sinus bradycardia Gerty toxicity -Initial lithium levels upon arrival to the emergency department on 09/02/2023 were toxic at 2.0. These levels down trended resulting at 2.0, 1.6, 1.1, and this morning are within safe therapeutic range at 0.8. -Bradycardia may patient's normal baseline, however since recent overdose of lithium order placed for STAT repeat EKG. Suicidal attempt via intentional ingestion of medication, lithium Bipolar disorder Anxiety and depression -Management by primary admitting psychiatric team. -Continue suicide precautions. Data and imaging reviewed: As stated above in HPI Thank you for allowing us to participate in the care of this pleasant patient. Do not hesitate to contact us with questions. Someone can be reached from the [facility] hospitalist group all hours of the day at [phone] or via perfect serve. Patient was seen independently by Nurse Practitioner. This document was prepared using [employer] dictation software. Please allow for errors in head of merchandise buying while rare they do occur. 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 bipolor, depression. illicit drug use Medications and Allergies Home Medications Medication Instructions Recorded Confirmed Type Gerty Carbonate [Gerty 300 mg PO HS 09/02/23 09/02/23 History Carbonate ER] Sertraline [Zoloft] 50 mg PO DAILY 09/02/23 09/02/23 History Allergies Allergy/AdvReac Type Severity Reaction Status Date / Time cinnamon Allergy Swelling Verified 09/02/23 19:36 of tongue Physical Exam Vitals: Vital Signs Temp Pulse Pulse Resp BP BP Pulse Ox 09/04/23 06:11 97.7 F 48 L 14 101/52 97 09/03/23 20:20 96.4 F L 52 L 18 107/57 100 09/03/23 20:09 58 L 16 92/58 96 09/03/23 11:00 66 18 96/64 99 Cranial Nerve Examination - Cranial Nerves Cranial Nerve II- Optic: Intact Cranial Nerve III- Oculomotor: Intact Cranial Nerve IV- Trochlear: Intact Cranial Nerve V- Trigeminal: Intact Cranial Nerve - Abducens: Intact Cranial Nerve VII- Facial: Intact Cranial Nerve VIII- Auditory: Intact Cranial Nerve IX- Glossopharyngeal: Intact Cranial Nerve X- Vagus: Intact Cranial Nerve XI- Accessory: Intact Cranial Nerve XII- Hypoglossal: Intact Results CBC & Chem 7: 09/04/23 08:11 09/04/23 08:11 <Saskia Toth - Last Filed: 09/04/23 18:09> History of Present Illness Marcelo Romo VALVE INSPECTOR rendered care for this patient independently, reviewed the findings and plan as documented in the note above. I did not physically speak with or examine the patient on this date. Physical Exam Osteopathic Statement: *. No significant issues noted on an osteopathic structural exam other than those noted in the History and Physical/Consult. Vitals: Vital Signs Temp Pulse Pulse Resp BP BP Pulse Ox 09/04/23 14:07 98.5 F 62 20 97/52 98 09/04/23 11:30 98.8 F 62 16 105/53 97 09/04/23 06:11 97.7 F 48 L 14 101/52 97 09/03/23 20:20 96.4 F L 52 L 18 107/57 100 09/03/23 20:09 58 L 16 92/58 96 Intake and Output 09/04/23 09/04/23 09/04/23 06:59 14:59 22:59 Other: Weight 40.823 kg Results CBC & Chem 7: 09/04/23 08:11 09/04/23 08:11 Labs: Abnormal Lab Results - Last 24 Hours (Table) 09/04/23 09/04/23 Range/Units 08:11 08:11 RBC 3.72 L (3.80-5.40) m/uL Hct 33.7 L (34.0-46.0) % Chloride 116 H (98-107) mmol/L Carbon Dioxide 18 L (22-30) mmol/L Total Protein 5.9 L (6.3-8.2) g/dL Albumin 3.3 L (3.5-5.0) g/dL
[2023-09-04 11:02] VITALS: BMI 17.6
[2023-09-04 11:31] LABS: ALT 18 U/L (4-34); AST 33 U/L (14-36); African American GFR (CKD) >90 (>60 ml/min/1.73 sqM); Albumin 3.3 g/dL (3.5-5.0); Alkaline Phosphatase 59 U/L (38-126); Anion Gap 8 mmol/L; Blood Urea Nitrogen 8 mg/dL (7-17); Carbon Dioxide 18 mmol/L (22-30); Chloride 116 mmol/L (98-107); Glucose 87 mg/dL (74-99); Magnesium 2.2 mg/dL (1.6-2.3); Non-African American GFR(CKD) >90 (>60 ml/min/1.73 sqM); Potassium 3.8 mmol/L (3.5-5.1); Sodium 142 mmol/L (137-145); Total Bilirubin 0.5 mg/dL (0.2-1.3); Total Protein 5.9 g/dL (6.3-8.2)
[2023-09-04 11:32] LABS: HCG,Qualitative Serum Detected
--- NOTE | 2023-09-04 13:27 | US ---
EXAMINATION TYPE: Transabdominal DATE OF EXAM: 09/04/2023 12:25 PM COMPARISON: NONE CLINICAL INDICATION: Female, 22 years old with history of concerns for retained products of conceptio n; patient took Methotrexate 08/16/2023 and is cramping and bleeding, , patient from mental health floor EXAM PERFORMED: OBTA/OBTV EXAM MEASUREMENTS: GESTATIONAL AGE / DATING Physician Established: Not yet established Dates by LMP: ( 6 weeks/5 days) EDC: 04/24/2024 Dates by First Scan: No previous this is first scan Dates by Current Scan for: Unable to date by today's study MATERNAL ANATOMY Uterus: 8.9 x 5.0 x 4.0cm Right Ovary: 2.9 x 2.1 x 2.1cm Left Ovary: 2.6 x 2.6 x 1.5 Post CDS / Adnexa: varicose vessels seen bilaterally, may represent pelvic congestion syndrome Presence of free fluid: within cul-de-sac Presence of corpus luteal cyst: not seen Presence of subchorionic bleed: not seen GESTATION / SURVEY Endometrium = 1.1cm echogenic debris seen within, increased vascularity noted within Date of LMP: 07/19/2023 Beta HcG (if available): unknown IMPRESSION: No evidence of intrauterine gestational sac, correlate with B-hCG. If positive, this could represent early , ectopic or spontaneous . Follow up pelvic ultrasound in 5-7 days a nd serial beta hCG studies are recommended.
[2023-09-04] MEDS: lamoTRIgine 25 MG TAB PO SCH (14:25)
[2023-09-04] MEDS: DOXYCYCLINE 100 MG CAP PO SCH (14:25)
[2023-09-04] MEDS: SERTRALINE 50 MG TAB PO STA (14:25)
[2023-09-04 14:57] LABS: Basophils % (A) 0 %; Eosinophils # (A) 0.2 k/uL (0-0.7); Eosinophils % (A) 2 %; HCT 33.7 % (34.0-46.0); HGB 11.6 gm/dL (11.4-16.0); Lymphocytes # (A) 1.6 k/uL (1.0-4.8); Lymphocytes % (A) 19 %; MCH 31.2 pg (25.0-35.0); MCHC 34.5 g/dL (31.0-37.0); MCV 90.6 fL (80.0-100.0); Mean Platelet Volume 9.3; Monocytes # (A) 0.4 k/uL (0-1.0); Monocytes % (A) 5 %; Neutrophils # (A) 5.8 k/uL (1.3-7.7); Neutrophils % (A) 72 %; Platelet Count 219 k/uL (150-450); RBC 3.72 m/uL (3.80-5.40); RDW 13.8 % (11.5-15.5); WBC 8.1 k/uL (3.8-10.6)
[2023-09-04 17:16] LABS: Chol/HDL Ratio 2.77 Ratio; LDL Cholesterol,Calculated 62.1 mg/dL (0.0-131.0); VLDL Calculation 16.48 mg/dL (5.00-40.00)
[2023-09-04] MEDS: MIRTAZAPINE 15 MG TAB PO SCH (21:07)
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
[2023-09-04] MEDS: LORazepam 1 MG TAB PO PRN (21:57)
[2023-09-05] MEDS: LORazepam 1 MG TAB PO PRN (07:06)
[2023-09-05 07:25] LABS: Basophils % (A) 1 %; Eosinophils # (A) 0.1 k/uL (0-0.7); Eosinophils % (A) 2 %; HCT 35.4 % (34.0-46.0); HGB 11.6 gm/dL (11.4-16.0); Lymphocytes # (A) 2.3 k/uL (1.0-4.8); Lymphocytes % (A) 30 %; MCH 29.2 pg (25.0-35.0); MCHC 32.9 g/dL (31.0-37.0); MCV 88.9 fL (80.0-100.0); Monocytes # (A) 0.4 k/uL (0-1.0); Monocytes % (A) 5 %; Neutrophils # (A) 4.7 k/uL (1.3-7.7); Neutrophils % (A) 61 %; Platelet Count 258 k/uL (150-450); RBC 3.98 m/uL (3.80-5.40); RDW 13.3 % (11.5-15.5); WBC 7.7 k/uL (3.8-10.6)
[2023-09-05 07:58] LABS: African American GFR (CKD) >90 (>60 ml/min/1.73 sqM); Anion Gap 7 mmol/L; Blood Urea Nitrogen 7 mg/dL (7-17); Calcium 8.6 mg/dL (8.4-10.2); Carbon Dioxide 24 mmol/L (22-30); Chloride 109 mmol/L (98-107); Glucose 106 mg/dL (74-99); Non-African American GFR(CKD) >90 (>60 ml/min/1.73 sqM); Potassium 3.7 mmol/L (3.5-5.1); Sodium 140 mmol/L (137-145)
[2023-09-05] MEDS ORDERED: SERTRALINE 100 MG TAB PO SCH (09:00)
[2023-09-05] MEDS: hydrOXYzine pamoate 25 MG CAP PO PRN (09:32)
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
[2023-09-05] MEDS: DULoxetine HCL 30 MG CAPSULE.DR PO SCH (13:41)
--- NOTE | 2023-09-05 13:43 | P.PN ---
Subjective Progress Note Date: 09/05/23 Hospital Course: Patient is a 22-year-old female with a past medical history of anxiety, depression, bipolar disorder, PTSD, and fibromyalgia. She presented to the emergency department on 09/02/2023 after reported suicidal attempt via overdose on lithium. Patient reported taking approximately 15 to 20 tablets of her 300 mg lithium pills in an attempt to hurt herself. Patient also reports recent and medication induced . She underwent full evaluation in the emergency department. Labs were completed and reviewed. CBC showing leukocytosis with WBC count of 18.2. BMP revealed metabolic acidosis with chloride of 111, bicarb of 20, and anion gap of 11. Liver profile was normal findings. hCG qualitative 294.2. Urinalysis positive for blood and 31 RBCs but negative for infection. Urine drug screen negative. Salicylate level less than 1.0. Acetaminophen level less than 10.0. Initial lithium level 2.0. Initial EKG showing sinus mechanism at 52 bpm with QT/QTc 478/459 ms and QRS duration of 80 ms. Patient was admitted to psychiatry unit. We were consulted for medical management and concerns of patient's abnormal vaginal bleeding status post reports of medication induced patient received via virtual online center called [facility] and patient reports receiving 3 doses of methotrexate which was started on 08/17/2023 and completed on 08/19/2023. Physical exam: Patient seen and fully evaluated again in mental health unit in room 312 with RN pattern hand. Patient reports she continues to have vaginal bleeding with reports of small blood clots. She denies excessive bleeding or experiencing any abdominal pain/suprapubic tenderness, or other vaginal discharge. Vital signs reviewed and stable. General: Nontoxic, no distress and appears stated age. Derm: Skin warm and dry, normal coloration for ethnicity. Head: Atraumatic, normocephalic and symmetric. Eyes: EOMs intact, no lid lag, and anicteric sclera Mouth: no lip lesions, mucus membranes moist Cardiovascular: regular rate and rhythm with normal S1S2, no murmur, positive posterior tibial pulses bilaterally, and cap refill < 2 seconds. Lungs: Respirations even, regular, and unlabored on room air. Lungs CTA bilaterally, no rhonchi, no rales, no wheezing, and no accessory muscle usage. Abdominal: soft, nontender to palpation in any of her 4 abdominal quadrants or suprapubic region., no guarding, no appreciable organomegaly Ext: ROM intact. No gross muscle atrophy, no edema, no contractures Neuro: Speech clear, face symmetrical and CN II-XII grossly intact with no noted focal neuro deficits Psych: Alert and oriented to person, place, time, and situation. Appropriate and pleasant affect. Assessment and Plan of Care: Persistent vaginal bleeding status post medication induced , rule out retained products of conception Elevated hCG qualitative status post recent medication induced -Persistent vaginal bleeding and leukocytosis are concerning for retained produ cts of conception with patient's recent medication induced . -Transvaginal ultrasound completed and radiology report reviewed stating a 1.1 cm echogenic debris and increased vascularity is seen within the endometrium and no evidence of intrauterine gestational sac. Recommending follow-up pelvic ultrasound in 5 to 7 days and continued serial beta hCGs. -Ultrasound findings appear to be consistent with final stages of medically induced . -Patient empirically started on doxycycline 100 mg twice daily and repeat quantitative hCG to be completed on 09/06/2023. -Patient to either follow-up outpatient with [facility] for repeat follow-up pelvic ultrasound in 5 to 7 days or if she remains hospitalized on mental health unit, we will repeat ultrasound at that time. -Hemoglobin remained stable at 11.6. Asymptomatic sinus bradycardia QT prolongation, resolved Dierks toxicity -EKG was repeated secondary to sinus bradycardia and EKG revealed sinus bradycardia at 54 bpm with prolonged QT of 510/483 ms. -Discussed with psychiatry team that this is likely secondary to previously administered QT prolonging medications medications along with lithium overdose but strongly advised to hold all QT prolonging medications and we will repeat EKG. -Repeat EKG completed this morning showing normal sinus rhythm at 75 bpm with a first-degree AV block with MS interval of 216 ms with full resolution of previous prolonged QT interval with current QT/QTc interval being 380/424 ms. -Initial lithium levels upon arrival to the emergency department on 09/02/2023 were toxic at 2.0. These levels down trended resulting at 2.0, 1.6, 1.1, and this morning are within safe therapeutic range at 0.8. Leukocytosis, resolved Suicidal attempt via intentional ingestion of medication, lithium Bipolar disorder Anxiety and depression -Management by primary admitting psychiatric team. -Continue suicide precautions. Data and imaging reviewed: Morning labs reviewed and stable. CBC showing continued resolution of leukocytosis with WBC count of 7.7 and stable hemoglobin of 11.6. BMP showing mild hyperchloremia with chloride of 109 otherwise normal findings. Repeat quantitative hCG to be completed tomorrow morning. Transvaginal ultrasound completed and radiology report reviewed stating a 1.1 cm echogenic debris and increased vascularity is seen within the endometrium and no evidence of intrauterine gestational sac. Recommending follow-up pelvic ultrasound in 5 to 7 days and continued serial beta hCGs. EKG completed in 09/05/2023 was reviewed showing sinus bradycardia and EKG revealed sinus bradycardia at 54 bpm with prolonged QT of 510/483 ms upon personal review and interpretation. Repeat EKG completed this morning showing normal sinus rhythm at 75 bpm with a first-degree AV block with MS interval of 216 ms with full resolution of previous prolonged QT interval with current QT/QTc interval being 380/424 ms. Vital signs reviewed and stable with blood pressure 113/62, heart rate 61, respiratory rate 20, temp 98.4 F, and SpO2 of 98% on room air. Thank you for allowing us to participate in the care of this pleasant patient. Do not hesitate to contact us with questions. Someone can be reached from the [facility] hospitalist group all hours of the day at [phone] or via perfect serve. Patient was seen independently by Nurse Practitioner. This document was prepared using [employer] dictation software. Please allow for errors in horse rider while rare they do occur. Marcelo Romo NP rendered care for this patient independently, reviewed the findings and plan as documented in the note above. I did not physically speak with or examine the patient on this date. Objective - Vital Signs Vital signs: Vital Signs Temp 98.4 F 09/05/23 08:57 Pulse 61 09/05/23 08:57 Resp 20 09/05/23 08:57 BP 113/62 09/05/23 08:57 Pulse Ox 98 09/05/23 06:05 FiO2 Intake & Output 09/04/23 09/05/23 09/05/23 18:59 06:59 18:59 Weight 40.823 kg - Labs CBC & Chem 7: 09/05/23 06:29 09/05/23 06:29 Labs: Abnormal Lab Results - Last 24 Hours (Table) 09/04/23 09/04/23 09/05/23 Range/Units 08:11 08:11 06:29 RBC 3.72 L (3.80-5.40) m/uL Hct 33.7 L (34.0-46.0) % Chloride 116 H 109 H (98-107) mmol/L Carbon Dioxide 18 L (22-30) mmol/L Glucose 106 H (74-99) mg/dL Total Protein 5.9 L (6.3-8.2) g/dL Albumin 3.3 L (3.5-5.0) g/dL
[2023-09-05] MEDS: OLANZapine 5 MG TAB PO SCH (21:29)
--- NOTE | 2023-09-06 11:58 | P.PN ---
Progress Note - Text Progress Note Date: 09/06/23 Interval History: Patient was seen in her room and was directable and agreeable to speak with wr iter at the bedside. Patient was sleeping, easy to wake. Patient states she was up and down most of the night. And that she is not really going to many groups. Patient is isolating in her room for most of the time, while on the unit. Patient did appear to be fairly tired this morning. Shank Burnisher spoke to the patient about the importance of participating in groups while on the unit. Patient verbalized understanding. At this time patient denies any suicidal or homicidal ideations, intent or plan. Patient denies any auditory, visual hallucinations and denies any paranoia or delusions. Patient denies any side effects from the medications and has been compliant with meds. Claims that the mood and anxiety been mildly improving. MENTAL STATUS EXAM: General Appearance: Patient appears to be stated age is alert, attempts to cooperate. Patient appears to have fair hygiene and grooming. Patient has multiple tattoos. Her bilateral forearms are scarred. Behavior: Patient is laying in bed without any agitated behavior. Eye contact poor. appears sad Speech: Patient's speech is fluent and nonpressured. Monotone, low in volume, shaky voice, improving Mood/Affect: Patient reports their mood is depressed and anxious, affect is congruent Suicidality/Homicidality: Patient denies having any homicidal ideation intent or plan. She is denying any suicidal ideations intent or plan today. Perceptions: Patient denies any visual hallucinations and denies any auditory hallucinations Though content/process: There is no evidence of any delusional thought content and thought process is linear. [place], vague. Memory and concentration: AOX3, grossly intact for the purposes of this session. 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 Patient is admitted to the unit voluntarily. -Medications : change Cymbalta 60mg PO qhs for mood/anxiety, Zyprexa 5mg PO qhs for mood stabilization/insomnia -haldol ativan and vistaril PRN for agitation/aggression -patient had a pelvic U/s to r/o POC retention (incomplete ). did not show evidence of this and suggestion to repeat U/s in 5-6 weeks. repeat BHcg on 09/05 shows again a mild increase. will go ahead and place sweatband separator consult for recommendations. -NRT - nicotine patch -SW on board for discharge planning. Encouraged patient to participate in groups to work on coping skills
--- NOTE | 2023-09-06 14:22 | P.OBCN ---
History of Present Illness Consult date: 09/06/23 Reason for consult: other (retained products of conception) Chief complaint: Vaginal spotting, possible retained products of contraception History of present illness: Ms. Montano is a 22 year old with LMP of 07/03/2023 who is admitted to [facility] unit for a recent suicide attempt. The patient has a long-sta nding history of depression, bipolar, borderline personality disorder, and generalized anxiety disorder. She discovered that she was in July 2023 and ordered an pill that she states was 800mcg of Misoprostol that she was directed to take orally. She was noted seen by a doctor at this time and no bHCG or imaging was done. She did have cramping and bleeding, feels that she visibly passed an embryo. During this admission, serial BHCGs were drawn 09/01 at 294 > 09/03 at 309 > 09/05 at 324. An ultrasound performed 09/03 on admission showed increased endometrial thickness and vascularity with no visible intrauterine or gestational sac. Past OBGYN history: The patient has irregular periods every few months and was taking OCPs at the time of concepction. LMP 07/03/23. Pateint had 1 FTCS for non reassuring matenral vital signs in labor on 12/23/20 for a female infant weighing 6 pounds. Past medical history: fibromyalgia, depression, bipolar, borderline personality disorder, and generalized anxiety disorder Medications: prior to admission the patient was taking Zoloft and Marianne Past surgical history: right lumpectomy for benign breast lesion, section Social history: marijuana use, nicotine via vaping, no alcohol use. The patient has joint custody of her daughter with the father of the baby. 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 bipolor, depression. illicit drug use Medications and Allergies Home Medications Medication Instructions Recorded Confirmed Type Marianne Carbonate [Marianne 300 mg PO HS 09/02/23 09/02/23 History Carbonate ER] Sertraline [Zoloft] 50 mg PO DAILY 09/02/23 09/02/23 History Allergies Allergy/AdvReac Type Severity Reaction Status Date / Time cinnamon Allergy Swelling Verified 09/02/23 19:36 of tongue Exam Vital Signs Temp Pulse Pulse Resp BP BP Pulse Ox 09/06/23 14:01 95 123/75 09/06/23 10:09 98.1 F 78 16 107/57 98 09/05/23 14:46 98.7 F 98 15 140/64 Patient is a pleasant 22 year old female in no apparent distress. Vital signs are stable. Breathing is non-labored. Abdomen is soft, nontender. Results Result Diagrams: 09/05/23 06:29 09/05/23 06:29 Assessment and Plan Assessment: 22 year old s/p medical voluntary termination of with 800mcg Misoprostol on 08/15 with retained products of conception Plan: Retained POCs. Patient afebrile, vital signs are stable. No signs of infection at this time. Patient was placed by the internal medicine team on doxycycline. Options of medical management by repeating dose of Misoprostol versus Suction D&C discussed with the patient. Patient elects for suction D&C. Due to admission to the U, it is not possible to take the patient to surgery during this admission without changing the admitting team so it can be billed properly. The patient is slated for likely discharge early to mid next week per Dr. Meeks. Given no signs of infection, will plan to have the patient have close follow up in the office with me after discharge for surgical consultation to scheduled suction D&C. Patient is to have daily CBC to monitor for infection. Also, continue to monitor BHCG q48 hours. If concerns for infection, please contact me and we will do the D&C while inpatient. Thank you for this consultation. Time with Patient: Greater than 30 (45 minutes)
--- NOTE | 2023-09-06 15:50 | P.PN ---
Progress Note - Text Progress Note Date: 09/06/23 Repeat hCG quant continue to slowly elevate slightly and is 324.8 this morning. Psychiatry did consult SHIPFITTER APPRENTICE as increasing quant is suspicious for retained products of conception. SHIPFITTER APPRENTICE did evaluate and discussed options with patient regarding repeating dose of misoprostol versus suction D&C and patient has elected for suction D&C, however secondary to her admission to the mental health unit at this time plans for patient to continue doxycycline 100 mg twice daily and continue to monitor quantitative hCG levels every 48 hours and plans for scheduled D&C next week after discharge from behavioral health unit. Order placed for repeat qualitative hCG for 09/08/2023. Marcelo Romo NP rendered care for this patient independently, reviewed the findings and plan as documented in the note above. I did not physically speak with or examine the patient on this date.
[2023-09-06] MEDS: IBUPROFEN 600 MG TAB PO PRN (16:31)
[2023-09-06] MEDS: DULoxetine HCL 60 MG CAPSULE.DR PO SCH (21:00)
[2023-09-07 07:40] LABS: Basophils % (A) 1 %; Eosinophils # (A) 0.1 k/uL (0-0.7); Eosinophils % (A) 2 %; HCT 35.8 % (34.0-46.0); HGB 11.9 gm/dL (11.4-16.0); Lymphocytes # (A) 2.8 k/uL (1.0-4.8); Lymphocytes % (A) 47 %; MCH 29.9 pg (25.0-35.0); MCHC 33.4 g/dL (31.0-37.0); MCV 89.7 fL (80.0-100.0); Mean Platelet Volume 7.8; Monocytes # (A) 0.3 k/uL (0-1.0); Monocytes % (A) 6 %; Neutrophils # (A) 2.5 k/uL (1.3-7.7); Neutrophils % (A) 41 %; Platelet Count 261 k/uL (150-450); RBC 3.99 m/uL (3.80-5.40); RDW 13.8 % (11.5-15.5)
--- NOTE | 2023-09-07 11:31 | P.PN ---
Progress Note - Text Progress Note Date: 09/07/23 Interval History: Patient was seen in her room and was directable and agreeable to speak with wr iter at the bedside. Patient continues to mainly be isolative while on the unit. She states that she has not gone to many groups. Continues to state that she feels anxious and misses her family. She was asking about other medications for anxiety. States that she slept on and off last night. We spoke about increasing her medications which she is okay with. Denies any other complaints at this time. States that her mood is mildly improving. Less tearful today. At this time patient denies any suicidal or homicidal ideations, intent or plan. Patient denies any auditory, visual hallucinations and denies any paranoia or delusions. Patient denies any side effects from the medications and has been compliant with meds. Claims that the mood and anxiety been mildly improving. MENTAL STATUS EXAM: General Appearance: Patient appears to be stated age is alert, attempts to cooperate. Patient appears to have fair hygiene and grooming. Patient has multiple tattoos. Her bilateral forearms are scarred. Behavior: Patient is laying in bed without any agitated behavior. Eye contact poor, improving. appears sad, improving mildly Speech: Patient's speech is fluent and nonpressured. Monotone, low in volume, Mood/Affect: Patient reports their mood is depressed and anxious, affect is congruent Suicidality/Homicidality: Patient denies having any homicidal ideation intent or plan. She is denying any suicidal ideations intent or plan today. Perceptions: Patient denies any visual hallucinations and denies any auditory hallucinations Though content/process: There is no evidence of any delusional thought content and thought process is linear. [place], focused on her anxiety and medications Memory and concentration: AOX3, grossly intact for the purposes of this session. 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 Patient is admitted to the unit voluntarily. -Medications : Increase Cymbalta 60mg PO qhs + 30 mg daily for mood/anxiety, increase Zyprexa 7.5mg PO qhs for mood stabilization/insomnia -haldol ativan and vistaril PRN for agitation/aggression -patient had a pelvic U/s to r/o POC retention (incomplete ). did not show evidence of this and suggestion to repeat U/s in 5-6 weeks. repeat BHcg on 09/05 shows again a mild increase. Appreciate ENGINE LATHE TENDER recommendations. Likely patient will need to have D&C once she is discharged from the unit. -NRT - nicotine patch -SW on board for discharge planning. Encouraged patient to participate in groups to work on coping skills
[2023-09-07] MEDS: DULoxetine HCL 30 MG CAPSULE.DR PO SCH (12:00)
[2023-09-07] MEDS: OLANZapine 7.5 MG TAB PO SCH (21:03)
--- NOTE | 2023-09-08 12:01 | P.PN ---
Progress Note - Text Progress Note Date: 09/08/23 Interval History: Patient was seen in her room and was directable and agreeable to speak with wr iter at the bedside. Patient was agreeable to speak in the office today. States that she is doing a bit better today with her mood and anxiety. We spoke about increasing her Cymbalta which she is okay with tomorrow. States that she is sleeping a bit better at nighttime. Claims that she is still having some mild cramping, we went over her beta-hCG number for today. She appears to have improvement in eye contact, has been seen on the phone a lot. Denies any other complaints at this time. Less tearful today. At this time patient denies any suicidal or homicidal ideations, intent or plan. Patient denies any auditory, visual hallucinations and denies any paranoia or delusions. Patient denies any side effects from the medications and has been compliant with meds. MENTAL STATUS EXAM: General Appearance: Patient appears to be stated age is alert, attempts to cooperate. Patient appears to have fair hygiene and grooming. Patient has multiple tattoos. Her bilateral forearms are scarred. Behavior: Patient is laying in bed without any agitated behavior. Eye contact poor, improving. appears sad, improving mildly Speech: Patient's speech is fluent and nonpressured. Monotone, low in volume Mood/Affect: Patient reports their mood is depressed and anxious, affect is congruent Suicidality/Homicidality: Patient denies having any homicidal ideation intent or plan. She is denying any suicidal ideations intent or plan today. Perceptions: Patient denies any visual hallucinations and denies any auditory hallucinations Though content/process: There is no evidence of any delusional thought content and thought process is linear. [place], focused on her anxiety and medications Memory and concentration: AOX3, grossly intact for the purposes of this session. 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 Patient is admitted to the unit voluntarily. -Medications : Increase Cymbalta 60mg PO qhs + 60 mg daily for mood/anxiety starting tomorrow, Zyprexa 7.5mg PO qhs for mood stabilization/insomnia -haldol ativan and vistaril PRN for agitation/aggression -patient had a pelvic U/s to r/o POC retention (incomplete ). did not show evidence of this and suggestion to repeat U/s in 5-6 weeks. repeat BHcg on 09/05 shows again a mild increase. Appreciate SOCIAL WORKER [employer] SERVICES recommendations. Likely patient will need to have D&C once she is discharged from the unit. -NRT - nicotine patch -SW on board for discharge planning. Encouraged patient to participate in groups to work on coping skills. likely discharge Saturday vs saturday.
[2023-09-08] MEDS: NICOTINE GUM (POLACRILEX) 2 MG GUM BUCCAL PRN (16:58)
--- NOTE | 2023-09-08 17:56 | P.PN ---
Progress Note - Text Progress Note Date: 09/08/23 Reviewed hCG quant, it is decreasing it 275.5. Patient will still need outpatient follow-up with CHASER APPRENTICE for evaluation and possible D&C. Order placed for repeat hCG quant to be drawn on 09/10/2023 if patient remains inpatient. Marcelo Romo NP rendered care for this patient independently, reviewed the findings and plan as documented in the note above. I did not physically speak with or examine the patient on this date.
[2023-09-09] MEDS: DULoxetine HCL 60 MG CAPSULE.DR PO SCH ×2 (09:07→20:40)
--- NOTE | 2023-09-09 11:08 | P.PN ---
Progress Note - Text Progress Note Date: 09/09/23 Interval History: Patient was seen in her room and was directable and agreeable to speak with wr iter at the bedside. Patient states she is doing better, and keeping her here any longer would be "a waste of time". Patient minimizing her situation as to what brought her in to the hospital. States she slept well last night. Patient states she is eating well. Denies any other complaints at this time. Patient states she needs out today to be able to testify in court in person, vs over zoom. Stated she would want to sign an AMA if not released today. Patient claims that she is feeling more tired on the medications during the day and claims that she wants to take a nap. Cart Driver explained how AMA works, and how it is different on the mental health unit. Patient verbalized understanding. Not tearful today. At this time patient denies any suicidal or homicidal ideations, intent or plan. Patient denies any auditory, visual hallucinations and denies any paranoia or delusions. Patient denies any side effects from the medications and has been compliant with meds. MENTAL STATUS EXAM: General Appearance: Patient appears to be stated age is alert, attempts to cooperate. Patient appears to have fair hygiene and grooming. Patient has multiple tattoos. Her bilateral forearms are scarred. Behavior: Patient is laying in bed without any agitated behavior. Eye contact poor, improving mildly Speech: Patient's speech is fluent and nonpressured. Monotone, low in volume Mood/Affect: Patient reports their mood is better, affect is congruent Suicidality/Homicidality: Patient denies having any homicidal ideation intent or plan. She is denying any suicidal ideations intent or plan today. Perceptions: Patient denies any visual hallucinations and denies any auditory hallucinations Though content/process: There is no evidence of any delusional thought content and thought process is linear. [place], focused on her anxiety and medications Memory and concentration: AOX3, grossly intact for the purposes of this session. 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 Patient is admitted to the unit voluntarily. -Medications : change Cymbalta 120mg PO qhs for mood/anxiety, decrease Zyprexa 5mg PO qhs for mood stabilization/insomnia -haldol ativan and vistaril PRN for agitation/aggression -patient had a pelvic U/s to r/o POC retention (incomplete ). did not show evidence of this and suggestion to repeat U/s in 5-6 weeks. repeat BHcg on 09/05 shows again a mild increase. Appreciate INVENTORY CONTROL COORDINATOR recommendations. Likely patient will need to have D&C once she is discharged from the unit. -NRT - nicotine patch -SW on board for discharge planning. Encouraged patient to participate in groups to work on coping skills. likely discharge saturday.
[2023-09-09] MEDS: OLANZapine 5 MG TAB PO SCH (20:40)
[2023-09-10] MEDS: NICOTINE 21MG/24HR PATCH TRANSDERM SCH (08:54)
--- NOTE | 2023-09-10 11:27 | P.PN ---
Progress Note - Text Progress Note Date: 09/10/23 Interval History: Patient was seen in her room and was directable and agreeable to speak with wr iter at the bedside. Patient states she is cramping today and was using hot packs. Engine Repairer Service advised patient that she has motrin and tylenol to help with this, also hot packs. Engine Repairer Service spoke with the patient about her HCG blood work, and let her know her numbers are trending down. she continues to endorse wanting to get a D and C completed once she is discharged. States she slept well last night. Patient states she is eating well. Denies any other complaints at this time. Not tearful today. At this time patient denies any suicidal or homicidal ideations, intent or plan. Patient denies any auditory, visual hallucinations and denies any paranoia or delusions. Patient denies any side effects from the medications and has been compliant with meds. MENTAL STATUS EXAM: General Appearance: Patient appears to be stated age is alert, attempts to cooperate. Patient appears to have fair hygiene and grooming. Patient has multiple tattoos. Her bilateral forearms are scarred. Behavior: Patient is laying in bed without any agitated behavior. Speech: Patient's speech is fluent and nonpressured. Monotone, low in volume improving Mood/Affect: Patient reports their mood is improving, affect is congruent improving Suicidality/Homicidality: Patient denies having any homicidal ideation intent or plan. She is denying any suicidal ideations intent or plan . Perceptions: Patient denies any visual hallucinations and denies any auditory hallucinations Though content/process: There is no evidence of any delusional thought content and thought process is linear. improving. focused on her sx Memory and concentration: AOX3, grossly intact for the purposes of this session. Judgment and insight: improving IMPRESSIONS: suicide attempt by overdose on psychiatric medications Bipolar disorder, current episode depressed cluster B personality disorder cannabis use disorder nicotine dependence PLAN: -Patient is admitted under voluntary status to MHU for stabilization of psychiatric symptoms and safety. Patient is admitted to the unit voluntarily. -Medications : Cymbalta 120 mg PO qhs for mood/anxiety, Zyprexa 5mg PO qhs for mood stabilization/insomnia -haldol ativan and vistaril PRN for agitation/aggression -patient had a pelvic U/s. did not show evidence of this and suggestion to repeat U/s in 5-6 weeks. Appreciate SUPERVISOR BRIAR SHOP recommendations. Likely patient will need to have D&C once she is discharged from the unit later this week. -NRT - nicotine patch -SW on board for discharge planning. Encouraged patient to participate in groups to work on coping skills. likely discharge tomorrow and patient will be able to have the D&C completed with WAITER/WAITRESS FIRST CLASS later this week
[2023-09-11 07:11] VITALS: BP 117/60; PULSE 73; RESP 14; TEMP 97.6
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
== END 2023-09-11 10:15 | disposition home or self-care (01) | DRG 753 ==
LOC: EC 16:53 → 3MHU 09-03 17:35
PROVIDERS: ADMIT Psychiatry & Neurology Psychiatry; ATTEND Psychiatry & Neurology Psychiatry
DX: F31.9 Bipolar disorder, unspecified (principal); F12.10 Cannabis abuse, uncomplicated; O03.4 Incomplete spontaneous abortion without complication; Z71.51 Drug abuse counseling and surveillance of drug abuser; F17.210 Nicotine dependence, cigarettes, uncomplicated; F17.290 Nicotine dependence, other tobacco product, uncomplicated; F43.10 Post-traumatic stress disorder, unspecified; F60.3 Borderline personality disorder; F60.89 Other specific personality disorders; G47.00 Insomnia, unspecified; M79.7 Fibromyalgia; E87.20 Acidosis, unspecified; N92.6 Irregular menstruation, unspecified; F41.1 Generalized anxiety disorder; F90.9 Attention-deficit hyperactivity disorder, unspecified type; T43.592A Poisoning by other antipsychotics and neuroleptics, intentional self-harm, initial encounter; Z63.4 Disappearance and death of family member; Z65.3 Problems related to other legal circumstances; Z81.8 Family history of other mental and behavioral disorders; Z63.5 Disruption of family by separation and divorce; Z28.310 Unvaccinated for COVID-19; Z28.21 Immunization not carried out because of patient refusal; Z11.52 Encounter for screening for COVID-19; Z56.0 Unemployment, unspecified; Z79.899 Other long term (current) drug therapy; Z71.3 Dietary counseling and surveillance
CPT/HCPCS: 36415; 76801; 76817; 80048; 80053; 80061; 80143; 80178; 80179; 80306; 80320; 81001; 82075; 83036; 83735; 84443; 84702; 84703; 85025; 87635; 93005; 96361; 96372; 96374; 99285

== ENCOUNTER → 2023-09-16 | Outpatient (CLI) | payer OTHER ==
[2023-09-16 18:14] LABS: Basophils # (A) 0.05 X 10*3/uL (0.00-0.10); Basophils % (A) 0.7 %; Eosinophils # (A) 0.14 X 10*3/uL (0.04-0.35); HCT 36.6 % (37.2-46.3); HGB 11.7 g/dL (12.0-15.0); Lymphocytes # (A) 2.35 X 10*3/uL (0.90-5.00); Lymphocytes % (A) 33.6 %; MCH 29.1 pg (27.0-32.0); Monocytes # (A) 0.39 X 10*3/uL (0.20-1.00); Monocytes % (A) 5.6 %; NRBC Per 100 WBC 0 X 10*3/uL (0.00-0.01); Neutrophils # (A) 4.06 X 10*3/uL (1.80-7.70); Platelet Count 253 X 10*3/uL (140-440); RBC 4.02 X 10*6/uL (4.10-5.20); RDW 14.2 % (11.5-14.5)
== END | disposition home or self-care (01) ==
LOC: LABPAT 14:02
PROVIDERS: ATTEND Obstetrics & Gynecology
DX: Z01.812 Encounter for preprocedural laboratory examination (principal); O02.1 Missed abortion
CPT/HCPCS: 84702; 85025; 86850; 86900; 86901

== ENCOUNTER 2023-09-18 06:24 | Day surgery (SDC) | payer OTHER ==
[~2023-09-18 06:24] MED LIST: LIDOCAINE 1% (10MG/ML) FOR IV START INTRADERMA PRN; Pre Op ABX Message 1 EACH MISC MISCELLANE ONE
[2023-09-18] MEDS: LACTATED RINGERS 1,000 ML IV SCH (06:57)
[2023-09-18] MEDS: DEXAMETHASONE SOD PHOSPHATE 4 MG/ML 1 ML VIAL IV ONE (07:14)
[2023-09-18] MEDS: MIDAZOLAM 2 MG/2 ML VIAL IV PRN (07:14)
[2023-09-18] MEDS: FAMOTIDINE 20 MG/2 ML VIAL IVP ONE (07:14)
[2023-09-18] MEDS: ONDANSETRON 4 MG/2 ML VIAL IVP ONE (07:14)
[2023-09-18] MEDS ORDERED: LIDOCAINE 1% INJ 10MG/ML (20 ML MDV) ONE (07:27)
[2023-09-18] MEDS ORDERED: fentaNYL (PF) 50 MCG/ML 2 ML AMP ONE (07:27)
[2023-09-18] MEDS ORDERED: SUCCINYLCHOLINE CHLORIDE 200 MG/10 ML VIAL IV ONE (07:27)
[2023-09-18] MEDS ORDERED: KETOROLAC 15 MG/ML 1 ML VIAL ONE (07:27)
[2023-09-18] MEDS ORDERED: PROPOFOL 10 MG/ML 20 ML VIAL IV ONE (07:27)
[2023-09-18] MEDS ORDERED: DOXYCYCLINE 100 MG CAP PO STA (07:54)
--- NOTE | 2023-09-18 08:02 | P.OP ---
Date of Procedure: 09/18/23 Preoperative Diagnosis: Retained products of conception after medical Postoperative Diagnosis: Same Procedure(s) Performed: Suction Dilation & Curettage Implants: None Anesthesia: SIL Surgeon: Karoline Vanessa Estimated Blood Loss (ml): 100 IV fluids (ml): 50 Urine output (ml): 800 Pathology: other (products of conception) Condition: stable Disposition: same day Indications for Procedure: Ms. Montano is a 22 year old who is s/p a medical with misoprostol at the beginning of August who was found to have continued bleeding, cramping, slowly rising bHCG. On US there was no evidence of gestational sac, but abnormally thickened endometrium with increased vascularity suspicious for retained products of conception. Risks, benefits, and alternatives to suction D&C were discussed with the patient including bleeding, infection, uterine perforation, and damage to surrounding structures. The patient understands these risks and desires to proceed with surgery. Operative Findings: 10-week sized anteverted uterus on exam under anesthesia. Uterus sounds to 9 cm. Moderate products of conception obtained with suction D&C Description of Procedure: The patient was taken to the operating room where a general anesthetic was administered. She was then positioned in the dorsal lithotomy position and prepped and draped in the normal sterile fashion. Once the anesthetic was found to be adequate, a bimanual exam was performed under anesthetic. Next, a weighted speculum was placed in the vagina. The anterior lip of cervix was grasped with the tenaculum and dilated with tal dilators to accomodate the suction currette. An 8mm suction curette was connected to the suction and was placed in the cervix and a suction curettage was performed. Two passes were made with the suction curettage. Next, a sharp curettage was performed obtaining a small amount of tissue and this was followed by third suction curettage. After the procedure, the tenaculum was removed. The cervix was hemostatic. The weighted speculum was removed. After the procedure, a second bimanual exam was performed and the patient's uterus had significantly decreased in size.The patient was taken from the operating room in stable condition after she was cleaned. She will receive PO doxycycline as glen-procedure prophylaxis prior to discharge. Type and screen also needs to have resulted prior to discharge. If Rh negative, she will receive rhogam. She will be discharged home today and will follow up in the office in 2 weeks.
[2023-09-18] MEDS: HYDROmorphone 0.5 MG/0.5 ML SYRINGE IVP PRN (08:12)
[2023-09-18 08:34] VITALS: TEMP 97
[2023-09-18 09:16] VITALS: RESP 16
[2023-09-18 09:56] VITALS: BP 100/53; PULSE 86
== END 2023-09-18 10:08 | disposition home or self-care (01) ==
LOC: OR 06:24 → EEVIPCON 06:24 → OR 10:08
PROVIDERS: ATTEND Obstetrics & Gynecology
DX: O03.4 Incomplete spontaneous abortion without complication (principal); F32.A Depression, unspecified; F41.1 Generalized anxiety disorder; M79.7 Fibromyalgia; F12.90 Cannabis use, unspecified, uncomplicated; Z98.891 History of uterine scar from previous surgery; Z98.890 Other specified postprocedural states; Z79.899 Other long term (current) drug therapy
CPT/HCPCS: 59812; J2250; J0330; J1100; J2405; J2001; J3010; J3490; J1885; J2704; J1170; 88305

== ENCOUNTER 2023-10-29 16:22 | Emergency (ER) | payer OTHER ==
--- NOTE | 2023-10-29 18:06 | ED ---
Psych HPI - General Chief Complaint: Psychiatric Symptoms Stated Complaint: Anxiety Time Seen by Provider: 10/29/23 17:20 Source: patient Mode of arrival: ambulatory - History of Present Illness Initial Comments: Patient is a 22-year-old woman with history of underlying bipolar and possibly borderline personality who presents with complaint that she is having severe anxiety. She states this is probably been triggered by the fact that there is a CPS investigation into her daughter's care waiting her daughter is with her ex. she states that she is feeling as if she is losing control. She denies suicidal ideation. She denies hallucinations. Patient also states that her lithium level was increased and since that time she has been having diarrhea and anxiety. Complaint: other -: days(s) Associated Psychiatric Symptoms: racing thoughts History of same: Yes Quality: getting worse Improves With: none Worsens With: none Treatments Prior to Arrival: none - Related Data Home Medications Medication Instructions Recorded Confirmed DULoxetine HCL [Cymbalta] 60 mg PO HS 10/29/23 10/29/23 Marshallberg Carbonate [Marshallberg 600 mg PO HS 10/29/23 10/29/23 Carbonate ER] Previous Rx's Medication Instructions Recorded busPIRone HCl [Buspar] 20 mg PO Q8H #63 tab 10/29/23 Allergies Allergy/AdvReac Type Severity Reaction Status Date / Time cinnamon Allergy Swelling Verified 10/29/23 20:01 of tongue Review of Systems ROS Statement: Those systems with pertinent positive or pertinent negative responses have been documented in the HPI. ROS Other: All systems not noted in ROS Statement are negative. Constitutional: Denies: fever, chills, weakness Eyes: Denies: vision change Respiratory: Denies: cough, dyspnea Cardiovascular: Denies: chest pain, palpitations, edema, syncope Gastrointestinal: Reports: diarrhea. Denies: abdominal pain, nausea, vomiting, constipation, melena, hematochezia Genitourinary: Denies: dysuria, hematuria, abnormal menses Skin: Denies: rash Neurological: Denies: headache, weakness, numbness Psychiatric: Reports: anxiety. 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 bipolor, depression. illicit drug use General Exam Limitations: no limitations General appearance: alert, in no apparent distress Head exam: Present: atraumatic, normocephalic Eye exam: Present: normal appearance. Absent: scleral icterus, conjunctival injection ENT exam: Present: normal oropharynx Neck exam: Present: normal inspection Respiratory exam: Present: normal lung sounds bilaterally. Absent: respiratory distress, wheezes, rales, rhonchi, stridor Cardiovascular Exam: Present: regular rate, normal rhythm, normal heart sounds. Absent: systolic murmur, diastolic murmur, rubs, gallop GI/Abdominal exam: Present: soft. Absent: distended, tenderness, guarding, rebound, rigid, mass Extremities exam: Present: normal inspection, normal capillary refill. Absent: pedal edema, calf tenderness Back exam: Present: normal inspection. Absent: CVA tenderness (R), CVA tenderness (L) Neurological exam: Present: alert Psychiatric exam: Present: anxious. Absent: agitated, flat affect, manic, homicidal ideation, suicidal ideation Skin exam: Present: warm, dry, intact, normal color. Absent: rash Course Vital Signs 10/29/23 10/29/23 16:33 23:05 Temperature 98.7 F 98.0 F Pulse Rate 100 74 Respiratory 20 18 Rate Blood Pressure 121/76 112/66 O2 Sat by Pulse 98 99 Oximetry Medical Decision Making - Medical Decision Making Was pt. sent in by a medical professional or institution (, PA, RETENTION MANAGER, urgent care, hospital, or longterm...) When possible be specific @ -[No] Did you speak to anyone other than the patient for history (EMS, parent, family, police, friend...)? What history was obtained from this source @ -[No] Did you review nursing and triage notes (agree or disagree)? Why? @ -[I reviewed and agree with nursing and triage notes] Were old charts reviewed (outside hosp., previous admission, EMS record, old EKG, old radiological studies, urgent care reports/EKG's, longterm records)? Report findings @ -[No old charts were reviewed] Differential Diagnosis (chest pain, altered mental status, abdominal pain women, abdominal pain men, vaginal bleeding, weakness, fever, dyspnea, syncope, headache, dizziness, GI bleed, back pain, seizure, CVA, palpatations, mental health, musculoskeletal)? @ -[Differential Mental Health Depression, anxiety, bipolar, psychosis, schizophrenia, borderline personality, situational depression, adjustment disorder, behavioral disorder, brain tumor, malingering, substance abuse, encephalopathy, medication reaction, dementia, hypothyroidism, degenerative neurologic disorder, lupus.... This is not meant to be all-inclusive list EKG interpreted by me (3pts min.). @ -[As above] X-rays interpreted by me (1pt min.). @ -[None done] CT interpreted by me (1pt min.). @ -[None done] U/S interpreted by me (1pt. min.). @ -[None done] What testing was considered but not performed or refused? (CT, X-rays, U/S, labs)? Why? @ -[None] What meds were considered but not given or refused? Why? @ -[None] Did you discuss the management of the patient with other professionals (professionals i.e. , PA, RETENTION MANAGER, lab, RT, psych nurse, certified social workers in health care, it administrative assistant, teacher, ordnance officer, shelter case manager)? Give summary @ -[The case was discussed with EPS personnel, they did see the patient and af ter staffing with psychiatrist patient is stable to continue as outpatient Was smoking cessation discussed for >3mins.? @ -[No] Was critical care preformed (if so, how long)? @ -[No] Were there social determinants of health that impacted care today? How? (Homelessness, low income, unemployed, alcoholism, drug addiction, transportation, low edu. Level, literacy, decrease access to med. care, fdc, rehab)? @ -[No] Was there de-escalation of care discussed even if they declined (Discuss DNR or withdrawal of care, Hospice)? DNR status @ -[No] What co-morbidities impacted this encounter? (DM, HTN, Smoking, COPD, CAD, Cancer, CVA, ARF, Chemo, Hep., AIDS, mental health diagnosis, sleep apnea, m orbid obesity)? @ -[None] Was patient admitted / discharged? Hospital course, mention meds given and route, prescriptions, significant lab abnormalities, going to OR and other pertinent info. @ -[See above Undiagnosed new problem with uncertain prognosis? @ -[No] Drug Therapy requiring intensive monitoring for toxicity (Heparin, Nitro, Insulin, Cardizem)? @ -[No] Were any procedures done? @ -[No] Diagnosis/symptom? @ -[Acute anxiety Acute, or Chronic, or Acute on Chronic? @ -[Acute Uncomplicated (without systemic symptoms) or Complicated (systemic symptoms)? @ -[Uncomplicated Side effects of treatment? @ -[No] Exacerbation, Progression, or Severe Exacerbation? @ -[No] Poses a threat to life or bodily function? How? (Chest pain, USA, [place], pneumonia, PE, COPD, DKA, ARF, appy, cholecystitis, CVA, Diverticulitis, Homicidal, Suicidal, threat to staff... and all critical care pts) @ -[No] - Lab Data Result diagrams: 10/29/23 18:40 10/29/23 18:40 Lab Results 10/29/23 10/29/23 Range/Units 18:40 18:40 WBC 9.3 (3.8-10.6) k/uL RBC 4.96 (3.80-5.40) m/uL Hgb 14.6 (11.4-16.0) gm/dL Hct 45.4 (34.0-46.0) % MCV 91.6 (80.0-100.0) fL MCH 29.5 (25.0-35.0) pg MCHC 32.3 (31.0-37.0) g/dL RDW 12.6 (11.5-15.5) % Plt Count 285 (150-450) k/uL MPV 8.4 Neutrophils % 60 % Lymphocytes % 32 % Monocytes % 5 % Eosinophils % 1 % Basophils % 1 % Neutrophils # 5.5 (1.3-7.7) k/uL Lymphocytes # 3.0 (1.0-4.8) k/uL Monocytes # 0.5 (0-1.0) k/uL Eosinophils # 0.1 (0-0.7) k/uL Basophils # 0.1 (0-0.2) k/uL Sodium 139 (137-145) mmol/L Potassium 3.6 (3.5-5.1) mmol/L Chloride 109 H (98-107) mmol/L Carbon Dioxide 18 L (22-30) mmol/L Anion Gap 12 mmol/L BUN 10 (7-17) mg/dL Creatinine 0.63 (0.52-1.04) mg/dL Est GFR (CKD-EPI)AfAm >90 (>60 ml/min/1.73 sqM) Est GFR (CKD-EPI)NonAf >90 (>60 ml/min/1.73 sqM) Glucose 84 (74-99) mg/dL Calcium 9.4 (8.4-10.2) mg/dL [place]berg 0.4 mmol/L Disposition Clinical Impression: Acute anxiety Disposition: HOME SELF-CARE Condition: Good Prescriptions: busPIRone HCl [Buspar] 20 mg PO Q8H #63 tab Is patient prescribed a controlled substance at d/c from ED?: No Referrals: None,Stated [Primary Care Provider] - 1-2 days [facility] [NON-STAFF] - 1-2 days
[2023-10-29] MEDS: DULoxetine HCL 60 MG CAPSULE.DR PO STA (18:49)
[2023-10-29] MEDS: LORazepam 1 MG TAB PO STA (18:49)
[2023-10-29 19:05] LABS: Basophils # (A) 0.1 k/uL (0-0.2); Basophils % (A) 1 %; Eosinophils # (A) 0.1 k/uL (0-0.7); Eosinophils % (A) 1 %; HCT 45.4 % (34.0-46.0); HGB 14.6 gm/dL (11.4-16.0); Lymphocytes % (A) 32 %; MCH 29.5 pg (25.0-35.0); MCHC 32.3 g/dL (31.0-37.0); MCV 91.6 fL (80.0-100.0); Mean Platelet Volume 8.4; Monocytes # (A) 0.5 k/uL (0-1.0); Monocytes % (A) 5 %; Neutrophils # (A) 5.5 k/uL (1.3-7.7); Neutrophils % (A) 60 %; Platelet Count 285 k/uL (150-450); RBC 4.96 m/uL (3.80-5.40); RDW 12.6 % (11.5-15.5); WBC 9.3 k/uL (3.8-10.6)
[2023-10-29 19:14] LABS: African American GFR (CKD) >90 (>60 ml/min/1.73 sqM); Anion Gap 12 mmol/L; Blood Urea Nitrogen 10 mg/dL (7-17); Calcium 9.4 mg/dL (8.4-10.2); Carbon Dioxide 18 mmol/L (22-30); Chloride 109 mmol/L (98-107); Glucose 84 mg/dL (74-99); Lithium 0.4 mmol/L; Non-African American GFR(CKD) >90 (>60 ml/min/1.73 sqM); Potassium 3.6 mmol/L (3.5-5.1); Sodium 139 mmol/L (137-145)
[2023-10-29] MEDS: LITHIUM CARBONATE 300 MG CAP PO STA (20:19)
[2023-10-29 23:31] VITALS: BP 112/66; PULSE 74; RESP 18; TEMP 98
== END 2023-10-29 23:06 | disposition home or self-care (01) ==
LOC: EC 16:22
DX: F41.9 Anxiety disorder, unspecified (principal); Z91.018 Allergy to other foods
CPT/HCPCS: 36415; 80048; 80178; 82075; 85025; 99283